=== PATIENT | female | born 1990 | race Caucasian/White ===

== ENCOUNTER 2021-02-03 16:57 | Outpatient (RCR) | payer OTHER, SELFPAY ==
[2021-02-03 17:40] VITALS: BP 116/65; PULSE 85
--- NOTE | 2021-03-24 10:56 | WPDANESEPPF ---
Anes - Initial Pre Proc Eval Procedure: Operation Date: 03/24/21 12:00 Proposed Procedures p Repeat Section - Sourav Balbuena DO Date/Time: 03/24/21 10:56 Surgeon: Sourav Balbuena DO Pre Op Diagnosis: previous c section Patient Data Age: 30 Gender: F Height: Weight: Last Vital Signs Pulse 85 02/03/21 17:40 BP 116/65 02/03/21 17:40 Allergies Allergy/AdvReac Type Severity Reaction Status Date / Time No Known Allergies Allergy Verified 03/03/21 14:30 Home Medications Medication Instructions Recorded Confirmed Type prenat.vits,viola,uwf-jovo-ccrbq 1 tablet PO HS 03/03/21 03/03/21 History [ #2] Patient hx anesthesia problems: none Family hx anesthesia problems: none PMFSH Surgical History Surgical History (Updated 03/20/21 @ 14:23 by Sourav Balbuena DO) History of delivery Family History Family History Sibling Throat cancer Grandparent Heart disease Mother Hypertension Social History Social History Smoking status: Current some day smoker Substance use: never Spiritual care concerns: No Anes - Eval Final PreProcedure Day of Procedure 03/24/21 10:56 Patient weight: obese Heart: regular rate and rhythm Lungs: clear to auscultation and normal air movement Airway: Mallampati scale class II Neurological: alert and oriented Last oral intake: >/= 8 hours ASA classification: II Emergent: no Anesthetic plan: proceed Anesthesia type and monitoring: regional spinal and standard monitoring Informed Consent: The patient's anesthetic plan and its attendant risks and benefits were discussed with the patient/family/POA. Questions were solicited and answers provided to the satisfaction of the patient/family/POA.
== END 2021-04-01 09:57 | disposition home or self-care (01) ==
LOC: ANHOBOP 16:57
PROVIDERS: Visit Provider Obstetrics & Gynecology
DX: O36.8330 Maternal care for abnormalities of the fetal heart rate or rhythm, third trimester, not applicable or unspecified (principal); Z3A.32 32 weeks gestation of pregnancy
CPT/HCPCS: 59025

== ENCOUNTER 2021-03-03 16:24 | Outpatient (CLI) | payer OTHER, SELFPAY ==
--- NOTE | ~2021-03-03 | US_ITS ---
EXAMINATION: US venous doppler LE RT DATE: 03/03/2021 17:01 INDICATION: Right lower limb edema. TECHNIQUE: Grayscale ultrasound images without and with compression and Doppler ultrasound images of the right lower extremity veins were obtained. COMPARISON: None. FINDINGS: The visualized portions of right common femoral vein, profunda (deep) femoral vein, femoral vein, pop liteal vein, peroneal veins, posterior tibial veins, and greater saphenous vein outflow are patent. IMPRESSION: 1. No deep venous thrombosis. Reviewed, dictated and finalized at location A.
== END 2021-03-03 16:25 | disposition home or self-care (01) ==
LOC: ANHIMG 16:32
PROVIDERS: PCP Internal Medicine; Visit Provider Obstetrics & Gynecology
DX: R60.0 Localized edema (principal)
CPT/HCPCS: 93971

== ENCOUNTER 2021-03-22 13:45 | Outpatient (CLI) | payer OTHER, SELFPAY ==
[2021-03-22 14:07] LABS: Hematocrit 39.9 % (37.0-47.0); Hemoglobin 13.7 g/dL (12.0-15.0); Mean Corpuscular HGB Conc 34.3 g/dl (32-36); Mean Corpuscular Hemoglobin 31.1 pg (26-34); Mean Corpuscular Volume 90.7 fl (80-100); Mean Platelet Volume 10.4 fl (7.4-10.4); Platelet Count Result 166 k/mm3 (150-375); Red Cell Distribution Width 13.6 % (11.5-14.5); White Blood Count 11.4 K/mm3 (4.5-10.0)
[2021-03-24 07:57] LABS: Rapid Plasma Reagin Non-Reactive (NonReactive)
== END 2021-03-22 13:46 | disposition home or self-care (01) ==
LOC: ANHLAB 13:48
PROVIDERS: PCP Internal Medicine; Visit Provider Obstetrics & Gynecology
DX: Z01.818 Encounter for other preprocedural examination (principal)
CPT/HCPCS: 36415; 85027; 86592; 86850; 86900; 86901

== ENCOUNTER 2021-03-24 10:02 | Inpatient (IN) | payer OTHER, SELFPAY ==
--- NOTE | 2021-03-03 14:45 | PC.NURSE ---
Addendum entered by Joseph Mares RN 03/03/21 14:47: VERIFIED WITH OR SCHEDULE AND PATIENT -C/S ON 03/24/21 AT 1200 PATIENT GIVEN REQUISITION FOR LAB DRAW ON 03/22/21 Original Note: VERIFIED WITH OR SCHEDULE AND PATIENT--C/S
--- NOTE | 2021-03-20 14:18 | PM.IMHP ---
H&P: HPI History of Present Illness Date/Time: 03/20/21 14:18 30yo (JACI 03/30/21) scheduled for elective repeat section at 39w1d on 03/24/21. Uncomplicated course. FIrst devliery via was secondary to arrest of dilation. Chief Complaint: history of section Review of Systems Constitutional: Constitutional: Reports no additional constitutional complaints Cardiovascular: Cardiovascular: Reports no additional cardiovascular complaints Respiratory: Respiratory: Reports no additional respiratory complaints Gastrointestinal: Gastrointestinal: Reports no additional gastrointestinal complaints Genitourinary: Genitourinary: Reports no additional female genitourinary complaints Musculoskeletal: Musculoskeletal: Reports no additional musculoskeletal complaints Integumentary/Breasts: Skin/Breast: Reports system reviewed and no additional complaints, except as docu Neurologic: Reports system reviewed and no additional complaints, except as documented Psychiatric: Psychiatric: Reports no additional psychiatric complaints Endocrine: Endocrine: Reports no additional endocrine complaints Hematologic/Lymphatic: Hematologic/Lymphatic: Reports no additional hematologic/lymphatic complaints Allergic/Immunologic: Allergic/Immunologic: Reports no additional allergic/immunologic complaints [facility] Surgical History Surgical History (Updated 03/20/21 @ 14:23 by Sourav Balbuena DO) History of delivery Family History Family History Sibling Throat cancer Grandparent Heart disease Mother Hypertension Social History Social History Substance use: never Spiritual care concerns: No Meds Home Medications and Allergies Home Medications Medication Instructions Recorded Confirmed Type prenat.vits,viola,[id number] 1 tablet PO HS 03/03/21 03/03/21 History [ #2] Allergies Allergy/AdvReac Type Severity Reaction Status Date / Time No Known Allergies Allergy Verified 03/03/21 14:30 Exam Const: General: cooperative, healthy appearing, comfortable, no acute distress, well developed, alert, awake and Physically active HENMT: Head: normal to inspection, normocephalic and atraumatic Eyes: General: appearance normal, both eyes and all related structures Resp: Effort & Inspection: normal respiratory effort, able to speak in complete sentences, normal respiratory pattern, no audible wheezes and no cough Cardio: Rate: regular rate Rhythm: regular rhythm GI: Inspection: normal to inspection GI Palp: Yes Soft to palpation, No Tenderness to palpation present (GI) and No Guarding due to palpation present (GI) Skin: General skin exam: normal color and no rashes or lesions noted Neuro: General: oriented to person, oriented to place, oriented to time and patient oriented x3 Psych: Appearance: grossly normal Mental Status: mental status grossly normal Speech and movement: Normal speech and movement present Affect: normal affect Attitude: cooperative Thought process: Normal thought process present Thought content: Yes Normal thought content present Insight: Good insight present (Psych) Judgement: Good judgement present (Psych) Assessment and Plan Assessment and plan (1) History of delivery: Code(s): Z98.891 - History of uterine scar from previous surgery Status: Inactive Assessment and Plan: -Admit to L&D -Admission labs -Repeat section
[2021-03-24] VITALS (57 sets, daily range): BP systolic 110–132; BP diastolic 41–82; PULSE 53–98; RESP 14–18; TEMP 36.1–36.6; O2SAT 94–98; BMI 34.7
--- OUTSIDE RECORDS SUMMARY | 2021-03-24 10:07 | XMS_ITS ---
:1990 Author Care Team Providers Name Role Phone Hase Primary Care Provider Unavailable Allergies Code Code System Name Reaction Severity Status Onset NKDA ? Medications Name Status Start Date Stop Date ? ? Acne Medication 5 % topical gel Completed ? 05/02/2018 NIDA A SMALL AMOUNT TO FACE QAM amoxicillin 875 mg-potassium Completed ? clavulanate 125 mg tablet citalopram 10 mg tablet Completed ? 05/18/20 17 TK 1 T PO D clobetasol 0.05 % scalp solution Completed ? 06/05/2019 Drysol Dab-O-Matic 20 % topical Completed ? 05/18/2017 solution Elidel 1 % topical cream Completed ? 018 Fluarix Quad (PF) 60 mcg (15 mcg x 4)/0.5 mL IM syring e Active ? Not available ADM 0.5ML IM UTD Fluarix Quad (PF) 60 mcg (15 mcg x 4)/0.5 mL IM syring e Active ? Not available ADM 0.5ML IM UTD fluocinolone 0.01 % scalp oil and Completed ? 06/05/2019 shower cap fluocinolone 0.01 % topical body oil Unknown ? Not available fluticasone propionate 0.05 % topical Completed ? 05/02/2018 cream fluticasone propionate 50 mcg/actuation Completed ? 06/05/2019 nasal spray,suspension Pratima 0.35 mg tablet Completed ? 9 hydrocodone 5 mg-acetaminophen 325 mg Completed ? 11/08/2018 tablet ketoconazole 2 % shampoo Completed ? 019 methylprednisolone 4 mg tablets in a Unknown ? Not available dose pack
--- OUTSIDE RECORDS SUMMARY | 2021-03-24 10:07 | XMS_ITS | Encounter Summary ---
:1990 Author Reason for Visit return OB visit Assessment and Plan 1. Routine care Discussion Note: None recorded.Patient educational handouts: No information available. Plan of Care Reminders Provider Appointments None ? ? recorded. Lab None ? ? recorded. Referral None ? ? recorded. Procedures None ? ? recorded. Surgeries None ? ? recorded. Imaging None ? ? recorded. Medications Name Start Date ? ? Fluarix Quad (PF) 60 mcg (15 mcg x 4)/0.5 mL IM syringe ? ADM 0.5ML IM UTD Fluarix Quad (PF) 60 mcg (15 mcg x 4)/0.5 mL IM syringe ? ADM 0.5ML IM UTD Notes: PNV Medications Administered None recorded. Vitals Weight Blood Pressure 201.2 lbs 118/70 mm[Hg] Results Lab Results None recorded. Allergies Code Code System Name Reaction Severity Onset NKDA ? ? ? Problems Name Status Onset Date Source ? Active 09/10/2020 History Hyperhidrosis Active ? History Acne Active ? History Procedures Date Name Performed by ?
--- OUTSIDE RECORDS SUMMARY | 2021-03-24 10:07 | XMS_ITS | Encounter Summary ---
[...] Administered None recorded. Vitals Weight Blood Pressure 201 lbs 114/68 mm[Hg] Results Lab Results None recorded. Allergies Code Code System Name Reaction Severity Onset NKDA ? ? ? Problems Name Status Onset Date Source ? Active 09/10/2020 History Hyperhidrosis Active ? History Acne Active ? History Procedures Date Name Performed by ?
--- OUTSIDE RECORDS SUMMARY | 2021-03-24 10:08 | XMS_ITS | Encounter Summary ---
:1990 Author Reason for Visit return OB visit Assessment and Plan 1. Routine care ? glucose tolerance test, ge stational, 1-hour ? CBC ? HIV (1+2) Ab screen, serum Discussion Note: None recorded.Patient educational handouts: No information available. Plan of Care Reminders Provider Appointments None ? ? recorded. Lab Glucose [place] [facility] Tolerance Test, 12/25/2020 [facility] (Lab) Gestational, 1-Hour ? Cbc [place] [facility] 12/25/2020 [facility] (Lab) ? HIV (1+2) Ab [address] [facility] Screen, Serum 12/25/2020 [facility] (Lab) Referral None ? ? recorded. Procedures None ? ? recorded. Surgeries None ? ? recorded. Imaging None ? ? recorded. Medications Name Start Date ? ? Fluarix Quad 1796-0758 (PF) 60 mcg (15 mcg x 4)/0.5 mL IM syringe ? ADM 0.5ML IM UTD Fluarix Quad 8221-9301 (PF) 60 mcg (15 mcg x 4)/0.5 mL IM syringe ? ADM 0.5ML IM UTD Notes: PNV Medications Administered None recorded. Vitals Weight Blood Pressure 194 lbs 118/78 mm[Hg]
--- OUTSIDE RECORDS SUMMARY | 2021-03-24 10:08 | XMS_ITS | Encounter Summary ---
:1990 Author Reason for Visit return OB visit Assessment and Plan 1. Routine care 2. Mass of axilla ? US, axilla Discussion Note: None recorded.Patient educational handouts: No information available. Plan of Care Reminders Provider Appointments None ? ? recorded. Lab None ? ? recorded. Referral None ? ? recorded. Procedures None ? ? recorded. Surgeries None ? ? recorded. Imaging US, Axilla [facility]/22/[facility] (Imaging) Medications Name Start Date ? ? Fluarix Quad [id number] (PF) 60 mcg (15 mcg x 4)/0.5 mL IM syringe ? ADM 0.5ML IM UTD Fluarix Quad (PF) 60 mcg (15 mcg x 4)/0.5 mL IM syringe ? ADM 0.5ML IM UTD Notes: PNV Medications Administered None recorded. Vitals Weight Blood Pressure 196.8 lbs 110/70 mm[Hg] Results Lab Results None recorded. Allergies Code Code System Name Reaction Severity Onset NKDA ? ? ? Problems Name Status Onset Date Source ? Active 09/10/2020 History
--- OUTSIDE RECORDS SUMMARY | 2021-03-24 10:08 | XMS_ITS ---
:1990 Author Care Team Providers Name Role Phone YOUNG LEONARDO Primary Care Provider [phone] Allergies Code Code System Name Reaction Severity [...]
--- OUTSIDE RECORDS SUMMARY | 2021-03-24 10:08 | XMS_ITS | Encounter Summary ---
:1990 Author Reason for Visit return OB visit Assessment and Plan 1. Routine care 2. History of section ? section (SURG) Discussion Note: None recorded.Patient educational handouts: No information available. Plan of Care Reminders Provider Appointments None ? ? recorded. Lab None ? ? recorded. Referral None ? ? recorded. Procedures None ? ? recorded. Surgeries [facility] Section (SURG) 03/24/2021 (Admitting) Imaging None ? ? recorded. Medications Name Start Date ? ? Fluarix Quad 1150-1402 (PF) 60 mcg (15 mcg x 4)/0.5 mL IM syringe ? ADM 0.5ML IM UTD Fluarix Quad (PF) 60 mcg (15 mcg x 4)/0.5 mL IM syringe ? ADM 0.5ML IM UTD Notes: PNV Medications Administered None recorded. Vitals Height Weight Blood Pressure 5 ft 4 in 198 lbs 110/62 mm[Hg] Results Lab Results None recorded. Allergies Code Code System Name Reaction Severity Onset NKDA ? ? ? Problems Name Status Onset Date Source ? Active 09/10/
--- OUTSIDE RECORDS SUMMARY | 2021-03-24 10:08 | XMS_ITS | Encounter Summary ---
[...] Weight Blood Pressure 5 ft 4 in 199 lbs 112/64 mm[Hg] Results Lab Results None recorded. Allergies Code Code System Name Reaction Severity Onset NKDA ? ? ? Problems Name Status Onset Date Source ? Active 09/10/2020 History Hyperhidrosis Active ? History Acne Active ? History Procedures Date Name Performed by
--- OUTSIDE RECORDS SUMMARY | 2021-03-24 10:08 | XMS_ITS | Encounter Summary ---
:1990 Author Reason for Visit return OB visit Assessment and Plan 1. Routine care ? streptococcus group B, cul ture, unspecified specimen 2. Swelling of lower leg Discussion Note: None recorded.Patient educational handouts: No information available. Plan of Care Reminders Provider Appointments None recorded. ? ? Lab Streptococcus Gat [facility] Group B, Culture, 03/03/2021 Hospital (Lab) Unspecified Specimen Referral None recorded. ? ? Procedures None recorded. ? ? Surgeries None recorded. ? ? Imaging None recorded. ? ? Medications Name Start Date ? ? Fluarix Quad [id number] (PF) 60 mcg (15 mcg x 4)/0.5 mL IM syringe ? ADM 0.5ML IM UTD Fluarix Quad (PF) 60 mcg (15 mcg x 4)/0.5 mL IM syringe ? ADM 0.5ML IM UTD Notes: PNV Medications Administered None recorded. Vitals Weight Blood Pressure 202 lbs 119/62 mm[Hg] Results Lab Results None recorded. Allergies Code Code System Name Reaction Severity Onset NKDA ? ? ? Problems Name Status Onset Date Source ?
[2021-03-24] MEDS: LACTATED RINGERS 1,000 ML 125 ML IV CONT (11:19)
--- NOTE | 2021-03-24 11:29 | LDADM ---
This patient, Nereyda Benson, was admitted to Labor/Delivery/Recovery 119 on 03/24/21 at 10:02. Plans for scheduled section, pain management and were discussed with patient. Patient/family oriented to hospital policies and general routines including ID bracelet, bed and alarms, visiting hours, pain management, procedures, bathroom and other care routines, personal items, smoking policy, room service/diet and guest tray routines, infant security routines, and visiting hours. Patient/Family are encouraged to report perceived risks to care and to ask questions if they do not understand what they are told or what they should do. See OBIX for further documentation.
--- NOTE | 2021-03-24 11:42 | WPDHPUPDATE1 ---
History and Physical Update Update Date/Time: 03/24/21 11:42 History and Physical has been reviewed, including an updated exam of the patient. There are NO changes in the patient's condition. Risks, benefits, and alternatives have been discussed and questions answered. Patient agrees to proceed with procedure.
--- NOTE | 2021-03-24 13:04 | PM.OBPRVD ---
OB - Delivery Note Procedure Delivery date: 03/24/21 Procedure: Repeat Low Transverse Section Route of delivery: (elective repeat) Quantitative Blood Loss (ml): 275 Anesthesia type: Spinal Disposition: PACU Narrative: Patient was transferred to the OR table and once adequate anesthesia was established, she was placed in dorsal position with left tilt of the hips. Preoperative antibiotics were administered. A time out was performed to identify the correct patient and procedure. A pfannenstiel skin incision was made with the scalpel. Subsequent dissection of the subcutaneous layer was performed with the scalpel down to the level of the fascia. Bovie was used to obtain hemostasis from small bleeding vessels. The fascia was nicked at the midline. Fascial incision was extended laterally with Haley scissors. Monica clamps were used to tent the superior aspect of the fascia up and the rectus muscles were carefully dissected off the fascia. Attention was then turned to the inferior aspect of the fascia and this was tented up with the Monica clamps and rectus muscles dissected off the fascia. The rectus muscles were divided at the midline and the peritoneum was bluntly entered. Eduardo self-retaining retractor was inserted. A low transverse uterine incision was made. This was extended bluntly with cephalad and caudad force. Amniotic sac was entered and clear fluid was noted. The 's head was elevated to the level of the hysterotomy and delivered with gentle fundal pressure, followed by the rest of the body. Cord was clamped and cut and was handed off the nursing staff. Placenta was expressed and delivered with gentle cord traction. Hysterotomy was examined for any extensions and no extensions were noted. This was reapproximated with 0 Vicryl in continuous locking fashion. Good hemostasis noted. Bilateral ovaries and fallopian tubes appeared normal. Paracolic gutter were cleaned of any clots. The fascia was then reapproximated with 0 Vicryl in continuous non-locking fashion. Subcutaneous tissue was reapproximated with 0 plain. The skin was reapproximated with 4-0 Monocryl in subcuticular fashion. Sterile bandage was applied. All sponge and instrument counts were correct during and at the end of the procedure. Patient tolerated the procedure was well and was transferred to recovery unit in good condition. [place] Baby Date of : 03/24/21 Time of : 12:24 Weeks of gestation at delivery: 39 Infant gender: Male Weight (pounds): 9 Weight (ounces): 0 presentation: vertex Placenta delivery description: Expressed cord vessel description: 3 Vessels score one minute: 8 score five minutes: 9
--- NOTE | 2021-03-24 15:20 | PC.NURSE ---
Patient transferred to post room #284 via stretcher. Support person present. Oriented to unit, room, information board, rooming in, admission packet and security measures. Patient verbalizes understanding.
--- NOTE | 2021-03-24 16:29 | SUR.PHASEI ---
1432- called, informed pt had dressing replaced for drainage and the second dressing was now removed for drainage again. Described drainage noted from incision while OCCUP THER on the right side. Order received to place pressure dressing.
[2021-03-24] MEDS: KETOROLAC 30 MG/ML VIAL (*BKC) IV PUSH (22:44)
[2021-03-25 00:16] VITALS: BP 103/65; PULSE 67; RESP 16; TEMP 36.1; O2SAT 98
[2021-03-25 05:46] LABS: Basophils Percent Auto 0.2 % (0.2-1.2); Eosinophils Percent Auto 0.1 % (0-4.4); Hematocrit 33.8 % (37.0-47.0); Hemoglobin 11.4 g/dL (12.0-15.0); Immature Granulocyte Absolute 0.14 K/mm3 (0.00-0.031); Immature Granulocyte Percent A 0.8 % (0-0.5); Lymphocytes Absolute Auto 1.63 K/mm3 (0.9-3.2); Mean Corpuscular HGB Conc 33.7 g/dl (32-36); Mean Corpuscular Hemoglobin 31.1 pg (26-34); Mean Corpuscular Volume 92.3 fl (80-100); Mean Platelet Volume 10.9 fl (7.4-10.4); Monocytes Absolute Auto 1.7 K/mm3 (0.1-0.6); Monocytes Percent Auto 9.2 % (2.6-8.5); Neutrophils Absolute Auto 14.6 K/mm3 (1.3-6.7); Neutrophils Percent Auto 80.7 % (45.5-73.1); Platelet Count Result 162 k/mm3 (150-375); Red Blood Count 3.66 M/mm3 (4.2-5.4); Red Cell Distribution Width 13.6 % (11.5-14.5)
[2021-03-25 05:54] VITALS: BP 108/62; PULSE 65; RESP 16; TEMP 36.3; O2SAT 100
[2021-03-25 07:50] VITALS: BP 113/64; PULSE 72; RESP 18; TEMP 37.3; O2SAT 98
--- NOTE | 2021-03-25 07:56 | WPDANLDNPN2 ---
Anes-Prog Note L&D-Neuraxial Date/Time: 03/25/21 07:56 Neuraxial medications: intrathecal PF morphine Opiod-related complaints: none Patient feedback: Patient satisfied with post-operative pain management.
--- NOTE | 2021-03-25 07:56 | WPDANLDPN2 ---
Anes-Prog Note L&D Date/Time: 03/25/21 07:56 Comfortable throughout: section Neuraxial method: spinal Epidural/Spinal procedure site: clean & non-tender Neuro status: Neuro function grossly intact. Cardiovascular status: normal Respiratory status: normal Airway patency: baseline Mental status: baseline Post-Op hydration status: normal Vital Signs: Last Vital Signs Temp 36.3 C L 03/25/21 05:54 Pulse 65 03/25/21 05:54 Resp 16 03/25/21 05:54 BP 108/62 03/25/21 05:54 Pulse Ox 100 03/25/21 05:54 Pain score (VAS): 0 I/O: Intake & Output 03/24/21 03/24/21 03/25/21 15:59 23:59 07:59 Intake Total 1650 Output Total 100 Balance 1550 Post-procedural complaints: none Patient feedback: Patient satisfied with anesthetic care.
[2021-03-25] MEDS: MULTIVIT/MIN/PREN/FOL AC/IRON TABLET 1 TAB PO (08:27)
[2021-03-25] MEDS: IBUPROFEN 600 MG TABLET PO ×3 (08:27→23:00)
[2021-03-25] MEDS: DOCUSATE SODIUM 100 MG CAPSULE PO ×2 (08:27→16:23)
--- NOTE | 2021-03-25 10:00 | PC.NURSE ---
Mother called out for assist with feeding, reporting is sleepy at times and using a nipple shield. Mother reports using the shield with first child for 4 months then began pumping and bottle feeding. Mother has slight tenderness. She has been set up pumping and reports tenderness with pumping. Reviewed nipple shield precautions and possible complications. Instructions given on application and cleaning of shield. Patient able to return demonstration on proper application of shield. Discussed the need for regular pumping until milk is well established and is gaining weight, if continues to nurse with the shield. Patient verbalizes understanding. is able to freely thrust tongue past gum ridge, both lips flange easily. Skin is intact on both nipples, no redness and bruising noted. Reviewed feeding cues, frequencies, duration of feedings, feeding elimination flow sheet, and signs of adequate intake. Demonstrated stimulation techniques to wake infant for feeding. Assisted with infant to breast. Reviewed positioning/alignment in cross cradle, holding breast in ?U? hold and guided asymmetrical latch on. Infant attempted to breast without shield, he is unable to draw nipple in correctly. With shield in place, was able to latch correctly. nursed sleepily with bursts of steady draws and occasional swallowing followed with pausing. Suggested mother stimulate while feeding to increase stimulate, increase intake and to assist with maintaining deep latch. Reviewed signs of a correct latch, effective nursing and suck swallow ratio. Infant would slip to shallow latch, mother reports tenderness. Demonstrated how to adjust latch more deeply while feeding. Mother reports she can feel change in latch and has no tenderness. Nipple care reviewed of lanolin after feedings, warm compresses as needed. Instructed mother to call out for RN assistance if she is unable to latch for feeding or she has discomfort with nursing.
--- NOTE | 2021-03-25 10:40 | PC.NURSE ---
Reviewed breast pump care and usage, pumping schedule, nipple care, and collection and storage of breast milk. Encouraged [id number], breast massage and manual expression to stimulate supply. Assessed patient for correct flange size, placement and draw ( changed to 27mm). Patient verbalizes and demonstrates understanding of instructions.
[2021-03-25 12:15] VITALS: BP 118/76; PULSE 86; RESP 16; TEMP 37.4; O2SAT 98
[2021-03-25] MEDS: ACETAMINOPHEN 325 MG TABLET 650 MG PO ×2 (13:11→19:42)
[2021-03-25 19:04] VITALS: BP 114/64; PULSE 78; RESP 16; TEMP 36.5; O2SAT 100
[2021-03-26] MEDS: ACETAMINOPHEN 325 MG TABLET 650 MG PO ×2 (01:38→10:27)
[2021-03-26] MEDS: IBUPROFEN 600 MG TABLET PO ×2 (05:09→13:30)
[2021-03-26 08:00] VITALS: BP 130/74; PULSE 66; RESP 16; TEMP 37.1; O2SAT 100
--- NOTE | 2021-03-26 08:45 | PC.NURSE ---
Mother called out for assist with feeding due to nipple pain. Mother is using a nipple shield for all feedings reporting pain increased during the late evening. Mother has pumped and offered EBM as. Infant is able to freely thrust tongue past gum ridge. Skin is intact on both nipples, redness noted to right and bruising.scabbing to left by inverted crease noted. Reviewed nipple care of lanolin after each feeding, and warm compresses several times per day as needed. Reviewed infant feeding cues, frequencies, duration of feedings, feeding elimination flow sheet, and signs of adequate intake. Demonstrated stimulation techniques to wake infant for feeding. Assisted with to breast. Reviewed positioning/alignment in cross cradle, holding breast in ?U? hold and guided asymmetrical latch on. Infant able to latch correctly. Infant nursed eagerly, with steady draws and frequent swallowing noted. Suggested mother stimulate while feeding to increase stimulate, increase intake and to assist with maintaining deep latch Reviewed signs of a correct latch, effective nursing and suck swallow ratio. was able to maintain latch without discomfort to mother. would slip to shallow latch, mother reports tenderness. Demonstrated how to adjust latch more deeply while feeding. Mother reports she can feel change in latch and has no tenderness. Stressed to hold breast during entire feeding and to adjust as slips down or pulls back. Mother is feeding as required and waking infant to feed if needed. has had at least 8 effective feedings, some with supplementation by syringe, in the past 24 hours, and is currently meeting outcomes for weight, output, jaundice and feeding frequencies. Mother states she feels confident to continue effective at home. Reviewed transition to breast milk, signs of adequate intake, and engorgement/relief. Instructed to call ICP if intake/output less than required. Reviewed regular medications mother is taking. Information provided per Karen. Reviewed community resources on the [facility] website and in the Mom/Baby guide. Information on outpatient services provided. Mother has no further questions at this time.
[2021-03-26] MEDS: DOCUSATE SODIUM 100 MG CAPSULE PO (10:27)
[2021-03-26] MEDS: MULTIVIT/MIN/PREN/FOL AC/IRON TABLET 1 TAB PO (10:27)
--- NOTE | 2021-03-26 12:21 | PM.OBPNVD ---
OB - PN: Subj Subjective Date/time seen: 03/26/21 12:21 30yo s/p rLTCS on 03/24. Doing well today, would like to go home. No issues/complaints today. Tolerating diet. OB - PN: Obj Data Labs CBC & Chem 7: 03/25/21 05:17 OB - PN A/P Assessment and Plan (1) Status post repeat low transverse section: Code(s): Z98.891 - History of uterine scar from previous surgery Status: Acute Assessment and Plan: - Routine post care - Ambulate - Ok for DC home today Time Spent With Patient Time: Total time spent is greater than 50% in coordination of care (as documented) at patient's floor/unit and/or counseling patient: Exam Const: General: cooperative, healthy appearing, comfortable, no acute distress, well developed, alert, awake and Physically active Resp: Effort & Inspection: normal respiratory effort, able to speak in complete sentences, normal respiratory pattern, no audible wheezes and no cough Cardio: Rate: regular rate GI: Inspection: normal to inspection GI Palp: No abdominal tenderness, Yes Soft to palpation, No Tenderness to palpation present (GI), No Guarding due to palpation present (GI) and No Rigid due to palpation Other: Incision C/D/I, steristrip in place Psych: Appearance: grossly normal Mental Status: mental status grossly normal Speech and movement: Normal speech and movement present Affect: normal affect Attitude: cooperative Thought process: Normal thought process present Thought content: Yes Normal thought content present Insight: Good insight present (Psych) Judgement: Good judgement present (Psych)
--- NOTE | 2021-03-26 12:25 | P.DS_ITS ---
DS: Admitting Diagnosis Admitting Diagnosis Admitting Diagnosis: History of section DS: Discharge Diagnosis Discharge Diagnosis (1) Status post repeat low transverse section: Code(s): Z98.891 - History of uterine scar from previous surgery Status: Acute Assessment and Plan: - Routine post care - Ambulate - Ok for DC home today OB - DS: Summary OB Procedures : None OB Procedures Intrapartum: low cervical, transverse OB Procedures: : None Peripartum Data Procedures: Procedures Operation Date: 03/24/21 12:00 Actual Procedure Side Surgeon p Section Sourav Balbuena DO Time Spent with Patient Time attestation: Total time spent providing and/or coordinating discharge services: Exam Const: General: cooperative, healthy appearing, comfortable, no acute distress, well developed, alert, awake and Physically active Orientation/ consciousness: oriented to person, oriented to place, oriented to time and patient oriented x3 HENMT: Head: normal to inspection, normocephalic and atraumatic Eyes: General: appearance normal, both eyes and all related structures Resp: Effort & Inspection: normal respiratory effort, able to speak in complete sentences, normal respiratory pattern, no audible wheezes and no cough Cardio: Rate: regular rate Rhythm: regular rhythm GI: Inspection: normal to inspection Other: Incision C/D/I, steristrip in place Skin: General skin exam: normal color and no rashes or lesions noted Neuro: General: oriented to person, oriented to place, oriented to time and patient oriented x3 Psych: Appearance: grossly normal Mental Status: mental status grossly normal Speech and movement: Normal speech and movement present Affect: normal affect Attitude: cooperative Thought process: Normal thought process present Insight: Good insight present (Psych) Judgement: Good judgement present (Psych) Discharge Plan Discharge Attending physician on discharge: Sourav Balbuena Discharging Clinician: Sourav Balbuena Patient Disposition: Home, Self-Care Activity: may shower, no straining, may drive after 2 weeks and pelvic rest Diet: regular Patient Instructions: Antibiotic Form, How to Stop Smoking (DC) Stand Alone Forms: General Discharge Information Follow-up/Referrals: Sourav Balbuena DO [Physician] - Discharge Medications: No Action #2 Tablet 1 tablet PO HS RF: 0 Date of admission: 03/24/21 10:02 Primary Care Provider: Vidhi,Anton Carvajal Admitting Provider: Sourav Balbuena Attending physician on admission: Sourav Balbuena Condition: Stable
[2021-03-26] MEDS: MEASLES,MUMPS,RUBELLA VACCINE 0.5 ML VIAL (12:53)
[2021-03-28 11:18] VITALS: BP 131/71; PULSE 57; RESP 20; TEMP 37.2; O2SAT 100
== END 2021-03-26 14:30 | disposition home or self-care (01) | DRG 788 ==
LOC: ANHLDR 11:56 → ANHOB2 15:24
PROVIDERS: Admitting Provider Obstetrics & Gynecology; PCP Internal Medicine; Visit Provider Obstetrics & Gynecology
PROC: 10D00Z1 Extraction of Products of Conception, Low, Open Approach (ICD-10-PCS; CPT 59514; principal; 2021-03-24 12:00)
DX: O34.211 Maternal care for low transverse scar from previous cesarean delivery (principal); Z3A.39 39 weeks gestation of pregnancy; Z37.0 Single live birth
CPT/HCPCS: 36415; 85025; 85027; 86592; 86850; 86900; 86901; 90710; A9270; J1100; J1885; J2274; J2405; J7120

== ENCOUNTER 2021-11-13 15:33 | Emergency (ER) | payer OTHER, SELFPAY ==
--- NOTE | 2021-11-13 15:35 | ED.FEMALEGU ---
HPI - Female Genitourinary General Chief complaint: Urogenital-Female Stated complaint: Urinary Problem Time Seen by Provider: 11/13/21 15:35 Source: patient and RN notes reviewed History of Present Illness HPI Narrative: Patient is a 31-year-old female who presents the urgent care with complaints of urgency, frequency, dysuria. Patient states that her symptoms started 4 days ago. Patient states she has been taking [id number] Azo with mild symptom relief. Denies any fever, chills, nausea, vomit. Patient denies of any frequent history of UTIs. Denies of any abdominal pain. No other acute complaints. No acute distress noted. Patient aware of the plan of care. Some parts of this dictation were generated by voice recognition software and may contain typographical and/or grammatical inaccuracies. Related Data Home Medications Medication Instructions Recorded Confirmed No Home Medications 11/13/21 11/13/21 Allergies Allergy/AdvReac Type Severity Reaction Status Date / Time No Known Allergies Allergy Verified 11/13/21 15:48 Review of Systems Review of Systems: CONSTITUTIONAL: Denies fever, chills, or sweats. EYES: Denies visual changes, redness, or discharge. ENT: Denies rhinorrhea, congestion, sore throat, or otalgia. CARDIOVASCULAR: Denies chest pain, palpitations, or edema. RESPIRATORY: Denies cough or dyspnea. GASTROINTESTINAL: Denies abdominal pain, nausea, vomiting, or diarrhea. GENITOURINARY: Reports of frequency, urgency, dysuria SKIN: Denies rash or itching. MUSCULOSKELETAL: Denies back pain, joint pain, or myalgia. NEUROLOGIC: Denies headache, numbness, or weakness. All other systems reviewed are negative, except as documented in HPI. [facility] Surgical History Surgical History (Updated 03/26/21 @ 12:25 by Sourav Balbuena DO) History of delivery Family History Family History Sibling Throat cancer Grandparent Heart disease Mother Hypertension Social History Social History Smoking status: Current some day smoker Substance use: never Spiritual care concerns: No Comments At the time of my signature, I reviewed and agree with the nursing past medical, surgical, social, and family history. There is no relevant family history pertinent to the patient complaint. Exam Narrative: GENERAL: This is a well-nourished, well-developed patient, in no apparent distress. HEAD: normocephalic, atraumatic. EYES: PERRL. Sclera clear/white. Vision is grossly intact. EARS: External ears normal, auditory canals clear and without drainage, TMs normal without perforation. Hearing grossly intact. NOSE: External nose normal with no obvious nasal discharge, nares without redness, no rhinorrhea. THROAT: Mucous membranes moist NECK: Neck supple CARDIOVASCULAR: Regular rate and rhythm without murmurs, gallops, or rubs. RESPIRATORY: Clear to auscultation. Breath sounds equal bilaterally. No wheezes, rales, or rhonchi. GASTROINTESTINAL: Abdomen soft, mild suprapubic tenderness, nondistended. SKIN: warm, intact with no suspicious lesions or rash, good texture and turgor. NEURO: awake, alert, and oriented to person, place and time. There were no obvious focal neurologic abnormalities. EXTREMITIES: No clubbing, cyanosis, or edema. BACK: Negative bilateral CVA tenderness Course Course Level of Care: Express Care Visit Vital Signs Vital signs: Vital Signs Temperature 98.1 F 11/13/21 15:45 Pulse Rate 68 11/13/21 15:45 Respiratory Rate 18 11/13/21 15:45 Blood Pressure 114/72 11/13/21 15:45 Pulse Oximetry 99 11/13/21 15:45 Temperature 98.1 F 11/13/21 15:45 Pulse Rate 68 11/13/21 15:45 Respiratory Rate 18 11/13/21 15:45 Blood Pressure 114/72 11/13/21 15:45 Pulse Oximetry 99 11/13/21 15:45 Reviewed MDM - Female Genitourinary MDM Narrative Medical decision making narr
[2021-11-13 15:45] VITALS: BP 114/72; PULSE 68; RESP 18; TEMP 36.7; O2SAT 99
== END 2021-11-13 16:05 | disposition home or self-care (01) ==
PROVIDERS: Emergency Provider Nurse Practitioner Family; PCP Internal Medicine
DX: N39.0 Urinary tract infection, site not specified (principal); F17.200 Nicotine dependence, unspecified, uncomplicated; Z86.16 Personal history of COVID-19; Z86.14 Personal history of Methicillin resistant Staphylococcus aureus infection
CPT/HCPCS: 81003; 87077; 87086; 87186; 99213; G0463

== ENCOUNTER 2021-11-25 16:05 | Emergency (ER) | payer OTHER, SELFPAY ==
--- NOTE | 2021-11-25 16:10 | ED.SKABFB ---
HPI - Skin/Abscess/Foreign Bdy General Chief complaint: Skin/Abscess/Foreign Body Stated complaint: body rash, hands are swollen and tender Time Seen by Provider: 11/25/21 16:10 Source: patient and RN notes reviewed History of Present Illness HPI narrative: Patient is a 31-year-old female who presents the urgent care with complaints of a rash to the chest, abdomen, neck, bilateral forearms. Patient states it started on her abdomen last night and the spread throughout the day. Patient states that her hands are now swollen and tender as well. Patient has been taking Benadryl without much improvement. No other acute complaints. Denies of any ill contacts. No acute distress noted. Patient aware of the plan of care. Some parts of this dictation were generated by voice recognition software and may contain typographical and/or grammatical inaccuracies. Related Data Home Medications Medication Instructions Recorded Confirmed escitalopram oxalate 10 mg PO DAILY 11/25/21 11/25/21 Allergies Allergy/AdvReac Type Severity Reaction Status Date / Time No Known Allergies Allergy Verified 11/25/21 16:21 Review of Systems Review of Systems: CONSTITUTIONAL: Denies fever, chills, or sweats. EYES: Denies visual changes, redness, or discharge. ENT: Denies rhinorrhea, congestion, sore throat, or otalgia. CARDIOVASCULAR: Denies chest pain, palpitations, or edema. RESPIRATORY: Denies cough or dyspnea. GASTROINTESTINAL: Denies abdominal pain, nausea, vomiting, or diarrhea. GENITOURINARY: Denies dysuria or hematuria. SKIN: Reports of scattered itchy rash to the neck, chest, abdomen, bilateral arms MUSCULOSKELETAL: Denies back pain, joint pain, or myalgia. NEUROLOGIC: Denies headache, numbness, or weakness. All other systems reviewed are negative, except as documented in HPI. [facility] Surgical History Surgical History (Updated 03/26/21 @ 12:25 by Sourav Balbuena DO) History of delivery Family History Family History Sibling Throat cancer Grandparent Heart disease Mother Hypertension Social History Social History Smoking status: Current some day smoker Substance use: never Spiritual care concerns: No Comments At the time of my signature, I reviewed and agree with the nursing past medical, surgical, social, and family history. There is no relevant family history pertinent to the patient complaint. Exam Narrative: GENERAL: This is a well-nourished, well-developed patient, in no apparent distress. HEAD: normocephalic, atraumatic. EYES: PERRL. Sclera clear/white. Vision is grossly intact. EARS: External ears normal NOSE: External nose normal with no obvious nasal discharge, nares without redness, no rhinorrhea. THROAT: Mucous membranes moist NECK: Neck supple CARDIOVASCULAR: Regular rate and rhythm without murmurs, gallops, or rubs. RESPIRATORY: Clear to auscultation. Breath sounds equal bilaterally. No wheezes, rales, or rhonchi. SKIN: Raised erythemic rough papular rash to the neck, scattered to the chest, and scattered to the abdomen. Raised erythemic scattered urticaria to bilateral forearms and behind bilateral ears NEURO: awake, alert, and oriented to person, place and time. There were no obvious focal neurologic abnormalities. EXTREMITIES: No clubbing, cyanosis, or edema. Course Course Level of Care: Express Care Visit Vital Signs Vital signs: Vital Signs Temperature 98.1 F 11/25/21 16:15 Pulse Rate 81 11/25/21 16:15 Respiratory Rate 20 11/25/21 16:15 Blood Pressure 140/83 11/25/21 16:15 Pulse Oximetry 99 11/25/21 16:15 Temperature 98.1 F 11/25/21 16:15 Pulse Rate 81 11/25/21 16:15 Respiratory Rate 20 11/25/21 16:15 Blood Pressure 140/83 11/25/21 16:15 Pulse Oximetry 99 11/25/21 16:15 Reviewed MDM - Skin/Abscess/Foreign Bdy MDM Narrative Medical decision aleida
[2021-11-25 16:15] VITALS: BP 140/83; PULSE 81; RESP 20; TEMP 36.7; O2SAT 99
== END 2021-11-25 16:58 | disposition home or self-care (01) ==
PROVIDERS: Emergency Provider Nurse Practitioner Family; PCP Internal Medicine
DX: L50.9 Urticaria, unspecified (principal); F17.200 Nicotine dependence, unspecified, uncomplicated
CPT/HCPCS: 87081; 87880; 99213; G0463

== ENCOUNTER 2021-11-27 01:35 | Emergency (ER) | payer OTHER, SELFPAY ==
[2021-11-27 01:38] VITALS: BP 149/62; PULSE 131; RESP 20; TEMP 36.9; O2SAT 98
[2021-11-27] MEDS: diphenhydrAMINE HCl INJ 50 MG/ML VIAL 25 MG IV PUSH (02:36)
[2021-11-27] MEDS: FAMOTIDINE 20 MG/2 ML VIAL IV PUSH (02:36)
[2021-11-27] MEDS: methylPREDNISolone SOD SUCC 125 MG VIAL IV PUSH (02:36)
[2021-11-27] MEDS: SODIUM CHLORIDE 0.9% IV 1,000 ML 999 ML IV CONT (02:37)
--- NOTE | 2021-11-27 03:10 | ED.SKABFB ---
HPI - Skin/Abscess/Foreign Bdy General Chief complaint: Allergic Reaction Stated complaint: allergic reaction Time Seen by Provider: 11/27/21 02:07 Source: patient Mode of arrival: ambulatory Limitations: no limitations History of Present Illness HPI narrative: 31-year-old female presents today with complaints of hives and itching that she noted yesterday. Hives have increased and patient states chest feels tight today. Patient was seen at urgent care on Wednesday. Patient was sent home with oral steroids which she took Wednesday night and this morning. Patient noted no change in symptoms but worsening of symptoms. Patient denies any new soaps, lotions, detergents, foods, etc. Patient denies any shortness of breath but does state that her chest feels tight at this time. Related Data Home Medications Medication Instructions Recorded Confirmed escitalopram oxalate 10 mg PO DAILY 11/25/21 11/25/21 Allergies Allergy/AdvReac Type Severity Reaction Status Date / Time No Known Allergies Allergy Verified 11/27/21 01:42 Review of Systems Review of Systems: CONSTITUTIONAL: Denies fever, chills, or sweats. EYES: Denies visual changes, redness, or discharge. ENT: Denies rhinorrhea, congestion, sore throat, or otalgia. CARDIOVASCULAR: Denies chest pain, palpitations, or edema. RESPIRATORY: Chest tightness. Denies cough or dyspnea. GASTROINTESTINAL: Denies abdominal pain, nausea, vomiting, or diarrhea. GENITOURINARY: Denies dysuria or hematuria. SKIN: Rash/hives. MUSCULOSKELETAL: Denies back pain, joint pain, or myalgia. NEUROLOGIC: Denies headache, numbness, dizziness, or weakness. PSYCHIATRIC: Denies anxiety or depression. PMFSH Surgical History Surgical History History of delivery Family History Family History Sibling Throat cancer Grandparent Heart disease Mother Hypertension Social History Social History Smoking status: Current some day smoker Substance use: never Spiritual care concerns: No Exam Narrative: GENERAL: Well-appearing, well-nourished, and in no acute distress. HEAD: Normocephalic, atraumatic. EYES: PERRLA and EOMI. ENT: Nares clear, no rhinorrhea or epistaxis. Mucous membranes moist. Oropharynx without tonsillar hypertrophy exudate or other lesions. Bilateral TMs pearly morrison nonbulging NECK: Supple. No adenopathy or masses. No carotid bruits or JVD CHEST: Clear to auscultation. No respiratory distress. No wheezes rales or rhonchi HEART: Regular rate and rhythm. No murmur heard. Normal peripheral pulses. ABDOMEN: Soft, nontender, nondistended, normal active bowel sounds. EXTREMITIES: Normal range of motion. No edema. SKIN: Urticaria noted to bilateral arms, abdomen, back, groin, and bilateral legs. Warm, dry. NEURO: No focal deficits. Alert and oriented x3. PSYCH: Normal mood and affect. Course Course Emergency Course: 31-year-old female presents today with complaints of rash/urticaria. Patient medicated with Pepcid, Solu-Medrol, Benadryl, and IV fluids. Improvement noted. Patient to be discharged home with steroids, Zyrtec, and Pepcid. Patient instructed to return with any new or worsening concerns and needs to follow-up with her primary in 3 days. Reevaluation(s) Reevaluation #1: Patient starting to feel some improvement after medication. Chest is no longer tight. Patient states the skin still feels like it is burning. Redness has decreased. Date: 11/27/21 Time: 03:13 Vital Signs Vital signs: Vital Signs Temperature 36.9 C 11/27/21 01:38 Pulse Rate 131 H 11/27/21 01:38 Respiratory Rate 20 11/27/21 01:38 Blood Pressure 149/62 H 11/27/21 01:38 Pulse Oximetry 98 11/27/21 01:38 Temperature 36.9 C 11/27/21 01:38 Pulse Rate 68 11/27/21 03:24 Respiratory Rate 16 11/27/21 03:24 Bloo
[2021-11-27 03:24] VITALS: BP 113/57; PULSE 68; RESP 16; O2SAT 99
[2021-11-27 04:35] VITALS: BP 110/58; PULSE 86; RESP 14; O2SAT 98
== END 2021-11-27 04:36 | disposition home or self-care (01) ==
PROVIDERS: Emergency Provider Nurse Practitioner Family; PCP Internal Medicine
DX: L50.9 Urticaria, unspecified (principal); F17.200 Nicotine dependence, unspecified, uncomplicated
CPT/HCPCS: 96361; 96374; 96375; 99284; J1200; J2930; J7030

== ENCOUNTER 2023-11-02 07:24 | Outpatient (CLI) | payer OTHER, SELFPAY ==
[2023-11-02 18:46] LABS: Hematocrit 43.7 % (37.0-47.0); Hemoglobin 13.5 g/dL (12.0-15.0); Mean Corpuscular HGB Conc 30.9 g/dl (32-36); Mean Corpuscular Hemoglobin 29.8 pg (26-34); Mean Corpuscular Volume 96.5 fl (80-100); Mean Platelet Volume 10.3 fl (7.4-10.4); Platelet Count Result 283 k/mm3 (150-375); Red Blood Count 4.53 M/mm3 (4.2-5.4); Red Cell Distribution Width 12.1 % (11.5-14.5); White Blood Count 6.1 K/mm3 (4.5-10.0)
[2023-11-02 19:12] LABS: Alanine Aminotransferase 17 U/L (6-35); Albumin Level 4.1 g/dL (3.5-5.1); Alkaline Phosphatase 57 U/L (38-126); Anion Gap 4 mmol/L (8-16); Aspartate Amino Transferase 61 U/L (14-36); Bilirubin,Total 0.4 mg/dL (0.2-1.3); Blood Urea Nitrogen 12 mg/dL (7-17); Calcium 9.1 mg/dL (8.4-10.2); Carbon Dioxide 28 mmol/L (22-30); Chloride 106 mmol/L (98-107); Cholesterol 166 mg/dL (0-200); Estimated Glomerular Filt Rate > 60; Glucose 80 mg/dL (65-110); HDL Direct 39 mg/dL; Potassium 4.2 mmol/L (3.4-5.0); Sodium 138 mmol/L (137-145); Triglycerides 83 mg/dL (<150)
[2023-11-02 19:23] LABS: LDL Cholesterol Direct 105 mg/dL
== END 2023-11-02 07:25 | disposition home or self-care (01) ==
LOC: ANHBWCLAB 07:25
PROVIDERS: PCP Nurse Practitioner Adult Health; Visit Provider Nurse Practitioner Adult Health
DX: Z13.9 Encounter for screening, unspecified (principal)
CPT/HCPCS: 36415; 80053; 80061; 84443; 85027

== ENCOUNTER 2023-12-14 16:23 | Outpatient (CLI) | payer OTHER, SELFPAY ==
[2023-12-14 19:23] LABS: Vitamin D 25 Hydroxy 47.6 ng/mL
[2023-12-14 19:58] LABS: Folic Acid 9.7 ng/mL (2.76->20)
[2023-12-16 11:49] LABS: FSH 3.6 mIU/mL (***); LH 4.5 mIU/mL (***); Progesterone 4.5 ng/mL (***)
[2023-12-21 12:31] LABS: Estrogen 178 pg/mL
== END 2023-12-14 16:24 | disposition home or self-care (01) ==
PROVIDERS: PCP Nurse Practitioner Adult Health; Visit Provider Nurse Practitioner Adult Health
DX: R53.83 Other fatigue (principal); Z79.899 Other long term (current) drug therapy
CPT/HCPCS: 36415; 82306; 82607; 82672; 82746; 83001; 83002; 84144

== ENCOUNTER 2024-01-08 13:56 | Emergency (ER) | payer OTHER, SELFPAY ==
[2024-01-08 14:09] VITALS: BP 124/73; PULSE 91; RESP 16; TEMP 37.2; O2SAT 99
--- NOTE | 2024-01-08 14:33 | ED.SKABFB ---
HPI - Skin/Abscess/Foreign Bdy General Chief complaint: Skin/Abscess/Foreign Body Stated complaint: painful rash Source: patient, RN notes reviewed and old records reviewed Mode of arrival: ambulatory Limitations: no limitations History of Present Illness HPI narrative: 33-year-old female presents to [facility] with complaints rash to lower right back left hand and right arm that started 2 days ago. Patient states takes Zyrtec daily. Patient has not tried any other at home medications. Patient states rash is painful. Patient denies any product changes, new medications or new foods Related Data Allergies Allergy/AdvReac Type Severity Reaction Status Date / Time No Known Allergies Allergy Verified 12/14/23 16:02 Review of Systems Constitutional: Constitutional: Reports no additional constitutional complaints, Denies body ache(s), Denies chills, Denies fatigue, Denies fever(s) and Denies headache(s) Eyes: Eyes: Reports no additional eye complaints and Denies blurry vision ENT: Reports system reviewed and no additional complaints, except as documented, Denies vertigo, Denies dizziness, Denies ear discharge, Denies otalgia, Denies facial pain, Denies headache(s), Denies nasal congestion, Denies nasal discharge, Denies sinus pain, Denies sinus pressure and Denies sore throat Cardiovascular: Cardiovascular: Reports no additional cardiovascular complaints, Denies chest pain, Denies chest pain at rest, Denies rapid heart rate and Denies dyspnea Respiratory: Respiratory: Reports no additional respiratory complaints, Denies chest congestion, Denies cough, Denies pain on inspiration, Denies pain with cough and Denies dyspnea Gastrointestinal: Gastrointestinal: Denies abdominal pain, Denies diarrhea, Denies nausea and Denies vomiting Integumentary/Breasts: Skin/Breast: Reports rash Neurologic: Reports system reviewed and no additional complaints, except as documented, Denies vertigo, Denies dizziness and Denies headache(s) Endocrine: Endocrine: Denies fatigue PMFSH Past Medical History Medical History Allergy, unspecified, initial encounter Anxiety Surgical History Surgical History Delivery by section History of delivery Family History Family History Sibling Throat cancer Grandparent Heart disease Mother Hypertension Other Diabetes mellitus Social History Social History Smoking status: Former smoker Alcohol intake: current Drinks per week: 2 Alcohol use details: Beer / Wine Substance use: never Substance use type: does not use Do You Feel Safe in your Home?: Yes Lack of Transportation: No Lack of Food: Never True Current Housing: I Have Housing Concerned About Future Housing: No Difficulty Paying Gas/Electric Bills: No Difficulty Paying for Meds: No Currently Unemployed: No Education: Master's Degree or Higher Difficulty w/ Childcare or Family Care: No Living arrangements: with family Additional living arrangements comments: Occupation/Education: occupation Additional occupation/education comments: teacher Gender identity (if verbalized by the patient): Female Sexual Orientation (if Verbalized by the Patient): Straight or Heterosexual Spiritual care concerns: No Agree to blood products: Yes Comments At the time of my signature, I reviewed and agree with the nursing past medical, surgical, social, and family history. There is no relevant family history pertinent to the patient complaint. Exam Const: General: cooperative, healthy appearing, no acute distress and well nourished Nutritional Appearance: well nourished Orientation/consciousness: patient oriented x3 Limitations: no limitations HENMT: Head: normal
== END 2024-01-08 14:42 | disposition home or self-care (01) ==
PROVIDERS: Emergency Provider Registered Nurse; PCP Nurse Practitioner Adult Health
DX: L23.9 Allergic contact dermatitis, unspecified cause (principal); Z87.891 Personal history of nicotine dependence
CPT/HCPCS: 99213; G0463

== ENCOUNTER 2024-01-12 13:00 | Emergency (ER) | payer OTHER, SELFPAY ==
[2024-01-12 13:03] VITALS: BP 138/73; PULSE 86; RESP 16; TEMP 36.6; O2SAT 100
[2024-01-12] MEDS: diphenhydrAMINE HCl INJ 50 MG/ML VIAL 25 MG IV PUSH (13:42)
[2024-01-12] MEDS: methylPREDNISolone SOD SUCC 125 MG VIAL IV PUSH (13:42)
[2024-01-12 13:58] LABS: Basophils Percent Auto 0.1 % (0.2-1.2); Eosinophils Absolute Auto 0.1 K/mm3 (0-0.3); Eosinophils Percent Auto 0.8 % (0-4.4); Hematocrit 38.2 % (37.0-47.0); Hemoglobin 13.1 g/dL (12.0-15.0); Immature Granulocyte Absolute 0.06 K/mm3 (0.00-0.031); Immature Granulocyte Percent A 0.5 % (0-0.5); Mean Corpuscular HGB Conc 34.3 g/dl (32-36); Mean Corpuscular Hemoglobin 30.5 pg (26-34); Mean Corpuscular Volume 88.8 fl (80-100); Mean Platelet Volume 9.5 fl (7.4-10.4); Monocytes Absolute Auto 0.4 K/mm3 (0.1-0.6); Monocytes Percent Auto 3.5 % (2.6-8.5); Neutrophils Absolute Auto 9.1 K/mm3 (1.3-6.7); Neutrophils Percent Auto 80.1 % (45.5-73.1); Platelet Count Result 310 k/mm3 (150-375); Red Cell Distribution Width 12.1 % (11.5-14.5); White Blood Count 11.3 K/mm3 (4.5-10.0)
[2024-01-12 14:09] LABS: Alanine Aminotransferase 18 U/L (6-35); Albumin Level 3.9 g/dL (3.5-5.1); Alkaline Phosphatase 55 U/L (38-126); Anion Gap 8 mmol/L (4-12); Aspartate Amino Transferase 21 U/L (14-36); Bilirubin,Total 0.6 mg/dL (0.2-1.3); Blood Urea Nitrogen 17 mg/dL (7-17); Calcium 8.8 mg/dL (8.4-10.2); Carbon Dioxide 25 mmol/L (22-30); Chloride 104 mmol/L (98-107); Estimated CRCL calculation 114 ml/min; Estimated Glomerular Filt Rate > 60; Glucose 112 mg/dL (65-110); Potassium 3.5 mmol/L (3.4-5.0); Sodium 137 mmol/L (137-145)
--- NOTE | 2024-01-12 15:13 | ED.GENADULT ---
HPI - General Adult General Chief complaint: Skin/Abscess/Foreign Body Stated complaint: rash Time Seen by Provider: 01/12/24 13:28 Source: patient Mode of arrival: ambulatory Limitations: no limitations History of Present Illness HPI narrative: 33-year-old with a history of seasonal allergies presents to the ER with a complaint of having hives all over the body with started few days ago was seen at urgent care and was started on Medrol Dosepak however this morning she states that she had diffuse hives. She denies any shortness of breath. Patient states that she had these current symptoms few years ago and that time she has seen Allergy immunology. She presently denies he taking any new medication using a new detergent or chemicals. She denies using any red meat or tick bite Onset (ago): day(s) (5) Related Data Allergies Allergy/AdvReac Type Severity Reaction Status Date / Time No Known Allergies Allergy Verified 01/12/24 13:06 Review of Systems Review of Systems: All systems reviewed & are unremarkable except as noted in HPI and below Constitutional: Constitutional: Reports no additional constitutional complaints Eyes: Eyes: Reports no additional eye complaints ENT: Reports system reviewed and no additional complaints, except as documented Gastrointestinal: Gastrointestinal: Reports as per HPI Musculoskeletal: Musculoskeletal: Reports no additional musculoskeletal complaints Integumentary/Breasts: Skin/Breast: Reports system reviewed and no additional complaints, except as docu Psychiatric: Psychiatric: Reports no additional psychiatric complaints PMFSH Past Medical History Medical History Allergy, unspecified, initial encounter Anxiety Surgical History Surgical History Delivery by section History of delivery Family History Family History Sibling Throat cancer Grandparent Heart disease Mother Hypertension Other Diabetes mellitus Social History Social History Smoking status: Former smoker Alcohol intake: current Drinks per week: 2 Alcohol use details: Beer / Wine Substance use: never Substance use type: does not use Do You Feel Safe in your Home?: Yes Lack of Transportation: No Lack of Food: Never True Current Housing: I Have Housing Concerned About Future Housing: No Difficulty Paying Gas/Electric Bills: No Difficulty Paying for Meds: No Currently Unemployed: No Education: Master's Degree or Higher Difficulty w/ Childcare or Family Care: No Living arrangements: with family Additional living arrangements comments: Occupation/Education: occupation Additional occupation/education comments: teacher Gender identity (if verbalized by the patient): Female Sexual Orientation (if Verbalized by the Patient): Straight or Heterosexual Spiritual care concerns: No Agree to blood products: Yes Exam Narrative: GENERAL: Well-appearing, well-nourished, and in no acute distress. HEAD: Normocephalic, atraumatic. EYES: PERRLA and EOMI. ENT: Nares clear, no rhinorrhea or epistaxis. Mucous membranes moist. NECK: Supple. CHEST: Clear to auscultation. No respiratory distress. HEART: Regular rate and rhythm. No murmur heard. Normal peripheral pulses. ABDOMEN: Soft, nontender, nondistended, normal active bowel sounds. EXTREMITIES: Normal range of motion. No edema. SKIN: Warm, dry, has diffuse hives NEURO: No focal deficits. Alert and oriented x3. PSYCH: Normal mood and affect. Course Course Emergency Course: Patient is stable she states that the rash is not any better however to me that looks like will lighten up. Advised to take prednisone 40 mg daily. Consider following with allergy power plant manager. She requested for
== END 2024-01-12 15:28 | disposition home or self-care (01) ==
PROVIDERS: Emergency Provider Family Medicine; PCP Nurse Practitioner Adult Health
DX: L50.9 Urticaria, unspecified (principal); Z87.891 Personal history of nicotine dependence; F41.9 Anxiety disorder, unspecified
CPT/HCPCS: 36415; 80053; 85025; 96374; 96375; 99284; J1200; J2919

== ENCOUNTER 2024-01-13 15:46 | Outpatient (CLI) | payer OTHER, SELFPAY ==
[2024-01-13 19:26] LABS: CRP 7.1 mg/dL (<1.0)
[2024-01-13 20:47] LABS: Erythrocyte Sedimentation Rate 24 mm/hr (0-20)
[2024-01-17 12:59] LABS: ANA Cascade Screen NEGATIVE (NEGATIVE)
== END 2024-01-13 15:47 | disposition home or self-care (01) ==
LOC: ANHBWCLAB 15:47
PROVIDERS: PCP Nurse Practitioner Adult Health; Visit Provider Nurse Practitioner Adult Health
DX: L50.8 Other urticaria (principal); Z79.899 Other long term (current) drug therapy
CPT/HCPCS: 36415; 85652; 86038; 86140; 86225; 86235; 86364

== ENCOUNTER 2024-07-24 08:40 | Outpatient (CLI) | payer OTHER, SELFPAY ==
[2024-07-24 19:24] LABS: Hematocrit 43.2 % (37.0-47.0); Hemoglobin 14.1 g/dL (12.0-15.0); Mean Corpuscular HGB Conc 32.6 g/dl (32-36); Mean Corpuscular Hemoglobin 30.9 pg (26-34); Mean Corpuscular Volume 94.5 fl (80-100); Mean Platelet Volume 10.7 fl (7.4-10.4); Platelet Count Result 265 k/mm3 (150-375); Red Blood Count 4.57 M/mm3 (4.2-5.4); Red Cell Distribution Width 13.5 % (11.5-14.5); White Blood Count 7.8 K/mm3 (4.5-10.0)
[2024-07-24 19:38] LABS: Alanine Aminotransferase 16 U/L (6-35); Albumin Level 4.2 g/dL (3.5-5.1); Alkaline Phosphatase 61 U/L (38-126); Anion Gap 6 mmol/L (4-12); Aspartate Amino Transferase 82 U/L (14-36); Bilirubin,Total 1.1 mg/dL (0.2-1.3); Blood Urea Nitrogen 13 mg/dL (7-17); Calcium 9.1 mg/dL (8.4-10.2); Carbon Dioxide 27 mmol/L (22-30); Chloride 105 mmol/L (98-107); Cholesterol 179 mg/dL (0-200); Estimated Glomerular Filt Rate > 60; Glucose 78 mg/dL (65-110); HDL Direct 56 mg/dL; Potassium 4.4 mmol/L (3.4-5.0); Sodium 138 mmol/L (137-145); Triglycerides 88 mg/dL (<150)
[2024-07-24 19:41] LABS: LDL Cholesterol Direct 95 mg/dL
== END 2024-07-24 08:41 | disposition home or self-care (01) ==
PROVIDERS: PCP Nurse Practitioner Adult Health; Visit Provider Nurse Practitioner Adult Health
DX: R73.9 Hyperglycemia, unspecified (principal); Z13.9 Encounter for screening, unspecified
CPT/HCPCS: 36415; 80053; 80061; 83036; 84443; 85027

== ENCOUNTER 2024-12-24 11:09 | Emergency (ER) | payer OTHER, SELFPAY ==
--- OUTSIDE RECORDS SUMMARY | 2024-12-24 11:11 | XMS_ITS ---
Author Organization [facility] Address [address] [place] [address] Care Team Providers Care Dialysis Chief Equipment Technician Name Role Phone Ana Van Primary Care Provider Carmen gilbertoje LorenzoMika Unavailable [phone] Allergies No Known Allergies REASON FOR VISIT Onset hives in mid-November without clear cause. Treated with oral steroids, Zyrtec, and Pepcid with complete resolution since November 30 s/p ED visit. Also with one noted episode of lip swelling. Additional onset 2 years later in relation to presumed viral illness with bruising occurring after, ARC follow-up: Continues allergy avoidance, on meds; recently with runny nose when eating meals Medications Medication SIG (Take, Route, Fr equency, Duration) Notes Start Date End Date Status Ipratropium [place] 0.06 % 2 sprays in each nostril Nasally Four times a day for 30 days 08/07/2024 Active Vyvanse 30 MG TAKE [address] [facility] DAILY Oral for 30 Days Active Auvi-Q 0.3 MG/0.3ML as directed intramus cularly once for 30 day(s) Active NASAL WASHES N/A as directed intranas ally as needed for 30 Active Amoxicillin-Pot Clavulanate 250-125 MG 1 tablet Orally every 8 hrs Active Lexapro 10 MG 1 tab(s) orally once a day for 30 day(s) Active ZyrTEC Allergy 10 MG 1 tab(s) orally once a day Active Fluticasone Propionate 50 MCG/ACT 2 spray(s) in each nostril BID for 30 day(s) Active FLUTICASONE NASAL 50 mcg/inh 2 spray(s) in each nostril BID for 30 day(s) Active CETIRIZINE 10 mg 1 tab(s) orally once a day for 30 days Active Fluticasone Propionate 50 MCG/ACT 2 spray(s) in each nostril BID for 30 day(s) 03/29/2022 Active Cetirizine HCl 10 MG 1 tab(s) orally onc e a day for 30 days 03/29/2022 Active AUVI -Q 0.3 mg as directed intramus cularly once for 30 day(s) Active Social History Tobacco Use: Social History Observation Description Date Details (start date - stop date) Never Smoker NA - NA Smoking Smart Form: Question Answer Notes Are you a: never smoker Tobacco Control (Standard) Question Answer Notes Tobacco use: Nonsmoker Problems Problem Type SNOMED Code ICD Code Onset Dates Problem Status W/U Status Risk Notes Problem Chronic rhinitis (29648461) Chronic rhinitis (J31.0) Active confirmed Vital Signs Blood pressure systolic 122 mm Hg 08/07/20 24 Blood pressure diastolic 77 mm Hg 024 Height 65 in 08/07/2024 Weight 185.2 lbs 08/07/2024 BMI 30.82 kg/m2 08/07/2024 Oximetry 100 % 08/07/2024 Encounters Encounter Location Date Provider Diagnosis [facility] [address] [address] 08/07/2024 Mika Lorenzo Idiopathic urticaria L50.1 ; Localized swelling, mass and lump, head R22.0 ; Chronic rhinitis J31.0 ; Allergic rhinitis due to pollen J30.1 ; Other allergic rhinitis J30.89 ; Other chronic allergic conjunctivitis H10.45 and Elevated blood-pressure reading, without diagnosis of hypertension R03.0 Assessments Encounter Date Diagnosis (ICD Code) Assessment Notes Treatment Notes Treatment Clinical Notes Section Notes 08/07/2024 Idiopathic urticaria (ICD-10 - L50.1) History, presentation, pictures, and timeframe of symptoms < 6 weeks c/w acute idiopathic urticaria. This is the second time this has occurred with clear underlying illness preluding onset. She has had approx 10 days of hives at this point. Treatment with antihistamines and steroids resulted in resolution of hives and swelling approx 5 days after onset. That said, she now reports bruising occurring after hives resolution despite hives occurring for less than 24 hours. The presentation of bruising is concerning for underlying vasculitis given she also reports joint pains at the time of occurrence as well. No interval illness or hives. Mainstay of treatment is with daily high-dose antihistamines but given low frequency of episodes, she has elected to continue on only daily Zyrtec. If hives return, I advised starting BID Zyrtec and BID Pepcid. She currently has solutions executive security on board. I advised obtaining bx if hives return to rule out vasculitics. Keep yearly follow-up and return sooner if hives return 08/07/2024 Localized swelling, mass and lump, head (ICD-10 - R22.0) Localized lip swelling occuring during episode of hives. 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 Plan to trial nasal ipratropium 15 minutes prior to meals to assess benefit. No current concern for a food allergy 08/07/2024 Allergic rhinitis due to pollen (ICD-10 - J30.1) Maris clearly suffers from atopic disease based upon our skin testing and clinical history. Accordingly, we have introduced a new, aggressive medication regimen, discussed nasal washes and allergy-specific avoidance measures. She is still considering SCIT. Happy with current regimen. Otherwise continue regimen as above. 08/07/2024 Other allergic rhinitis (ICD-10 - J30.89) Follow allergen avoidance, meds and consider SCIT as an adjunctive treatment to current regimen 08/07/2024 Other chronic allergic conjunctivitis (ICD-10 - H10.45) Given ocular signs and symptoms I encouraged allergy avoidance measures and meds as above. If symptoms persist, consider adding additional medications including intraocular antihistamine/mast cell stabilizer, PRN and consider SCIT as an adjunctive measure 08/07/2024 Elevated blood-pressure reading, without diagnosis of hypertension (ICD-10 - R03.0) BP elevated today without symptoms of urgency or emergency. Continue serial checks and follow-up with PCP 08/07/2024 Other Plan Of Treatment Medication Medication Name Sig Start Date Stop Date Notes Ipratropium [place] 0.06 % 2 sprays in e ach nostril Nasally Four times a day for 30 days 08/07/2024 NASAL WASHES N/A as directed intranas ally as needed for 30 FLUTICASONE NASAL 50 mcg/inh 2 spray(s) in each nostril BID for 30 day(s) CETIRIZINE 10 mg 1 tab(s) orally once a day for 30 days AUVI -Q 0.3 mg as directed intramus cularly once for 30 day(s) Treatment Notes Assessment Notes Idiopathic urticaria History, presentati on, pictures, and timeframe of symptoms < 6 weeks c/w acute idiopathic urticaria. This is the second time this has occurred with clear underlying illness preluding onset. She has had approx 10 days of hives at this point. Treatment with antihistamines and steroids resulted in resolution of hives and swelling approx 5 days after onset. That said, she now reports bruising occurring after hives resolution despite hives occurring for less than 24 hours. The presentation of bruising is concerning for underlying vasculitis given she also reports joint pains at the time of occurrence as well. No interval illness or hives. Mainstay of treatment is with daily high-dose antihistamines but given low frequency of episodes, she has elected to continue on only daily Zyrtec. If hives return, I advised starting BID Zyrtec and BID Pepcid. She currently has solutions executive security on board. I advised obtaining bx if hives return to rule out vasculitics. Keep yearly follow-up and return sooner if hives return Localized swelling, mass and lump, head Localized lip swelling occuring during episode of hives. Keep on hand at all times Chronic rhinitis Recurrent runny nose when eating meals c/w gustatory rhinitis. Plan to trial nasal ipratropium 15 minutes prior to meals to assess benefit. No current concern for a food allergy Allergic rhinitis due to pollen Maris clearly suffers from atopic disease based upon our skin testing and clinical history. Accordingly, we have introduced a new, aggressive medication regimen, discussed nasal washes and allergy-specific avoidance measures. She is still considering SCIT. Happy with current regimen. Otherwise continue regimen as above. Other allergic rhinitis Follow allergen avoidance, meds and consider SCIT as an adjunctive treatment to current regimen Other chronic allergic conjunctivitis Gi trice ocular signs and symptoms I encouraged allergy avoidance measures and meds as above. If symptoms persist, consider adding additional medications including intraocular antihistamine/mast cell stabilizer, PRN and consider SCIT as an adjunctive measure Elevated blood-pressure read ing, without diagnosis of hypertension BP elevated today without symptoms of urgency or emergency. Continue serial checks and follow-up with PCP Next Appt Details Follow Up: 4 Weeks, Reason: Evaluation and Management Provider Name:Mika painter, 07/30/2025 04:15:00 PM, [address] [facility], [address], [place], [address], Progress Notes * Nereyda CRAWFORDDOB:1990 (34 yo F)Acc No.[id number]:08/07/2024 Progress Notes Patient: Nereyda TABARES Provider: Raymundo Lorenzo PA-C :1990 A ge:34 Y S ex:Female Date:08/07/2024 Address:[address] [place], [place] [id number] Pcp:Ana Gomez, ANP- Subjective: * Chief Complaints: * O nset hives in mid-November without clear cause. Treated with oral steroids, Zyrtec, and Pepcid with complete resolution since November 30 s/p ED visit. Also with one noted episode of lip swelling. Additional onset 2 years later in relation to presumed viral illness with bruising occurring afterARC follow-up: Continues allergy avoidance, on meds; recently with runny nose when eating meals * HPI: * Introduction: I had the pleasure of seeing Annabella Crawford, a 34 y/o female with history of ARC and hives returning in consultation with Dr. Mosher for interval evaluation and management. She is alone for today's visit. She was last seen 2 years ago. She started with itchy ears that lead to diffuse hives starting mid-November and was started on high-dose prednisone. Hives improved significantly over the following few days before an episode of increased hives, lip swelling and SOB on 11/30. She went to the ED where she was treated with IV Benadryl with complete resolution. She finished her 14-day taper of prednisone and treated with Zyrtec and Pepcid. Noted lip swelling occurred at this point too. She denies any regular use of NSAIDs. No association with alcohol. No association with hot showers or exercise. No new medications or foods. No facial swelling outside the setting of hives. She reports January 07 she awoke with a fever. She started to have hives to the wrist that spread across the torso leading to swelling of the hands, eyes, and lips. She was given a steroid dose pack with minimal difference. On day 4, she went to the ED, and was treated with IV steroids and Benadryl. She does report bruising occurred after the hives resolved. This all resolved after day 5. She recently obtained ASIA with PCP that was negative. No interval occurrence. She does have a solutions executive security on board. She denies interval illness or hives since last visit. A eroallergen skin testing was completed at first visit, and was positive to multiple seasonal and perennial allergens. She reports ongoing runny nose, sinus congestion, and sneezing jags. She has taken Zyrtec in the past with benefit. She has a 6 y/o dog at home without noted difference. No one in her family is noted to have seasonal allergies. Additionally reports recurrent runny nose when eating meals. No other history of food allergies. T joaquin, she reports no fevers, chills, night sweats or other constitutional symptoms. * ROS: A LLERGY: runny nose Y es. s cratchy throat N o. i tchy eyes Y es. e ar fullness Y es. s inus congestion Y es. P ositive p er the HPI and history, otherwise unremarkable. S PECIAL SENSES: Positve for n one. i tching eyes Y es. ? C ONSTITUTIONAL: fatigue Y es. P ositive for n one. E NT: Positive p er the HPI and history, otherwise unremarkable.? R ESPIRATORY: Positive p er the HPI and history, otherwise unremakable.? O PHTHALMOLOGY: blurring of vision Y es. P ositive for p er the HPI and history, otherwise unremarkable. i tching Y es. w atering Y es. ? E NDOCRINOLOGY: fatigue Y es. P ositive for n one. C ARDIOLOGY: Positive for n one. G ASTROENTEROLOGY: Positive for n one. U ROLOGY: Positive for n one. D ERMATOLOGY: mole Y es. l umps N o. d ry or sensitive skin?Yes. h joelle (urticaria) Y es. a cne Y es. P ositive for p er the HPI and history, otherwise unremakable. N EUROLOGY: headache Y es. t ingling numbness Y es. P ositive for n one. H EMATOLOGY/LYMPH: Positive for n one. M USCULOSKELETAL: Positive for n one. P SYCHOLOGY: anxiety Y es. P ositive for n one. F EMALE REPRODUCTIVE: sexually active Y es. f requent yeat infections Y es. A re you planning on a future pregancy? N o. A ll other review of systems per the HPI and history, otherwise unremarkable. * Medical History: * Surgical History: B roken Wrist 12/21/2007Csection 10/10/2018Csection 03/24/2021 * Hospitalization/Major Diagno stic Procedure: N o Hospitalization History. * Family History: F ather: No. M other: Yes. P aternal Grand Father: No. P aternal Grand Mother: No.?Maternal Grand Father: No. M aternal Grand Mother: No. S iblings: Yes. C hildren: Yes. * Social History: M arital Status What is your marital status? m arried A lcohol Screening Do you ever drink alcoholic beverages? Y es Number of drinks per occasion: 2 Frequency? W julissa S moking Smart Form Are you a: n ever smoker R ecreational drug use Have you ever used recreational drugs? N o D etails on consumption of certain products? Do you regularly consume products with aspartame; Equal or NutraSweet? N o Do you regularly consume products with artificial coloring??Yes Have you ever noticed worsening of your rash with these food items? N o E xercise What kind(s) of exercise do you perform regularly? w eight training,cardio How often do you perform this exercise? e very other day A re any of the following personal care products containing fragrance, dye or preservatives used regularly? Shampoo: Y es Conditioner: Y es Soap: Y es Laundry Detergent: Y es Fabric Softener: Y es Deodorant: Y es Perfume, cologne, after shave: N o Air freshners or other scented products: N o Hair coloring dyes or rinses: N o O ccupation Are you currenly employed? Y es Employment status? 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 number of years?9 Do you believe that your current or previous occupation has any bearing on your illness? N o How much work have you missed due to breathing difficulty within the past year? 1 or 2 days Please describe the effect of your illness on your job p oor concentration,decreased enjoyment,loss of work Do you have any pending or planned legal action against your current or former employer which pertains to your medical illness? N o Do you anticipate that your evaluation will be used in any legal action against your current employer or former employer? N o Have you had any job with high exposure to fumes, chemicals, dust or other noxious substances? N o Are you currently a student? N o E nvironmental History Living environment: p rivate home,with pets Where is the home located? r ural Age of home: 2 0 How long have you lived there? 0 -1 years How many people live in the home? 4 H ome description Basement: Y es Any water damage in basement? N o Smokers in the home? N o Smokers outside the home? N o Air Conditioning? Y es Central Air? Y es Forced air heating? Y es Gas or electric? g as Fireplace? Y es Used how often? w inter months only Wood burning stove? N o Do you vacuum the home? Y es Air purification systems? N o Pillow and mattress dust-proof encasings? Y es Do you use a humidifier? N o Do you own any pets? Y es What kind(s)? (click all that apply) d og Where do your pets sleep? b edroom Fabric softeners used? Y es Plants in the home? Y es How many? 4 Where are they kept? y our room,kitchen,other room in home Is there carpeting in your bedroom? Y es Age of carpet? 2 0 Do you have [id number]-eh-fgys carpeting? N o What is the age of your mattress (years)? 5 What material(s) are used to manufacture your bedding and pillow? n atural fiber (e.g. cotton) What is the age of your pillow (years)? 1 What material are your bedding items made of? n atural fiber (e.g. cotton) Do you sleep with quilts or blankets or a duvet? Y es What material? n atural fiber (e.g. cotton) How many dogs? 1 T obacco Control (Standard) Tobacco use: N onsmoker * Medications: T akingNASAL WASHES N/A 1 quart of sterilized tap water or distilled water, 1 tsp NaCl, 1 pinch of baking soda as directed intranasally as needed Amoxicillin-Pot Clavulanate 250-125 MG Tablet 1 tablet Orally every 8 hrs Auvi-Q 0.3 MG/0.3ML Solution Auto-injector as directed intramuscularly once Cetirizine HCl 10 MG Tablet 1 tab(s) orally once a day Fluticasone Propionate 50 MCG/ACT Suspension 2 spray(s) in each nostril BID Fluticasone Propionate 50 MCG/ACT Suspension 2 spray(s) in each nostril BID ZyrTEC Allergy 10 MG Tablet 1 tab(s) orally once a day Lexapro 10 MG Tablet 1 tab(s) orally once a day Vyvanse 30 MG Capsule TAKE 1 CAPSULE BY MOUTH DAILY Oral Taking NASAL WASHES N/A 1 quart of sterilized tap water or distilled water, 1 tsp NaCl, 1 pinch of baking soda as directed intranasally as needed Taking Amoxicillin-Pot Clavulanate 250-125 MG Tablet 1 tablet Orally every 8 hrs Taking Auvi-Q 0.3 MG/0.3ML Solution Auto-injector as directed intramuscularly once Taking Cetirizine HCl 10 MG Tablet 1 tab(s) orally once a day Taking Fluticasone Propionate 50 MCG/ACT Suspension 2 spray(s) in each nostril BID Taking Fluticasone Propionate 50 MCG/ACT Suspension 2 spray(s) in each nostril BID Taking ZyrTEC Allergy 10 MG Tablet 1 tab(s) orally once a day Taking Lexapro 10 MG Tablet 1 tab(s) orally once a day Taking Vyvanse 30 MG Capsule TAKE 1 CAPSULE BY MOUTH DAILY Oral Not- Taking/PRNAUVI -Q 0.3 mg kit as directed intramuscularly once CETIRIZINE 10 mg tablet 1 tab(s) orally once a day FLUTICASONE NASAL 50 mcg/inh spray 2 spray(s) in each nostril BID Medication List reviewed and reconciled with the patientNot-Taking/PRN AUVI -Q 0.3 mg kit as directed intramuscularly once Not-Taking/PRN CETIRIZINE 10 mg tablet 1 tab(s) orally once a day Not-Taking/PRN FLUTICASONE NASAL 50 mcg/inh spray 2 spray(s) in each nostril BID Medication List reviewed and reconciled with the patient * Allergies: N .K.D.A.no[Allergies Verified] Objective: * Vitals: B P:122/77mm Hg, HR:70/min, Pulse Oximetry:100%, Ht: 65 in, Wt: 185.2 lbs, BMI:30.82Index. * Examination: G eneral examination: General appearance: p leasant, well-developed, well-nourished , female, in no apparent distress. HEENT: p upils equal, round, and reactive to light and accommodation, conjunctiva are injected bilaterally, no tenderness to palpation of the sinuses, TM's without evidence of acute infection, turbinates 2+ swollen and pale inferiorly bilaterally, clear rhinorrhea is present, no polyps noted, no septal perforation, posterior oropharynx is erythematous and cobblestoning is present, erythema on pharyngeal wall, no exudates, no tongue swelling, and uvula is midline. Oral cavity: n ormal, no lesions. Neck, thyroid : s upple, non-tender, no anterior cervical lymphadenopathy. Breasts : n ot performed. Heart: R RR, S1-S2, no murmurs, no rubs, no gallops. Lungs: c lear to auscultation and percussion in all lung allen, no wheezes or crackles. Abdomen: s oft, NT/ND, normal active bowel sounds. Neurologic exam: u nremarkable. Skin: n ormal, no rash, dermatographism, urticaria, angioedema. Peripheral pulses: n ormal (2+) bilaterally. Back: n ormal. Extremities: n ormal ROM, no clubbing, no cyanosis, no edema. Genitalia: n ot performed. Assessment: * Assessment: 1. I diopathic urticaria - L50.1 (Primary) 2 . L ocalized swelling, mass and lump, head - R22.0 3 . C hronic rhinitis - J31.0 4 . A llergic rhinitis due to pollen - J30.1 5 . O ther allergic rhinitis - J30.89 & #160; 6 . O ther chronic allergic conjunctivitis - H10.45 7 . E levated blood-pressure reading, without diagnosis of hypertension - R03.0 Plan: * Treatment: 2. L ocalized swelling, mass and lump, head Continue AUVI -Q kit, 0.3 mg, as directed, intramuscularly, once, 30 day(s), 1, Refills 0. ? Notes: Localized lip swelling occuring during episode of hives. Keep on hand at all times ? 3. C hronic rhinitis Start Ipratropium [place] Solution, 0.06 %, 2 sprays in each nostril, Nasally, Four times a day, 30 days, 1, Refills 2. Notes: Recurrent runny nose when eating meals c/w gustatory rhinitis. Plan to trial nasal ipratropium 15 minutes prior to meals to assess benefit. No current concern for a food allergy 4. A llergic rhinitis due to pollen Continue CETIRIZINE tablet, 10 mg, 1 tab(s), orally, once a day, 30 days, 30, Refills 0; C ontinue FLUTICASONE NASAL spray, 50 mcg/inh, 2 spray(s), in each nostril, BID, 30 day(s), 1, Refills 0; Continue NASAL WASHES 1 quart of sterilized tap water or distilled water, 1 tsp NaCl, 1 pinch of baking soda, N/A, as directed, intranasally, as needed, 30, QS, Refills PRN. Notes: Maris clearly suffers from atopic disease based upon our skin testing and clinical history. Accordingly, we have introduced a new, aggressive medication regimen, discussed nasal washes and allergy-specific avoidance measures. She is still considering SCIT. Happy with current regimen. Otherwise continue regimen as above. 5. O ther allergic rhinitis Notes: Follow allergen avoidance, meds and consider SCIT as an adjunctive treatment to current regimen 6. O ther chronic allergic conjunctivitis Notes: Given ocular signs and symptoms I encouraged allergy avoidance measures and meds as above. If symptoms persist, consider adding additional medications including intraocular antihistamine/mast cell stabilizer, PRN and consider SCIT as an adjunctive measure 7. E levated blood-pressure reading, without diagnosis of hypertension Notes: BP elevated today without symptoms of urgency or emergency. Continue serial checks and follow-up with PCP * Procedure Codes: G 8427 DOC MEDS VERIFIED W/PT OR [id number] Cristhian Lorenzo - Incident-to * Preventive Medicine: Counseling: M edication instruction: W atch for side effects of prescribed medications, Nasal steroid/antihistamine instruction: avoid septum, Injectable epinephrine education and instruction w/ discussion of signs and symptoms of anaphylaxis and reasons to seek urgent or emergent care, Able to return demonstration of self-injectable epinephrine. E ducation: H JOELLE EDUCATION:, Avoid opioid-containing analgesics, Avoid excessive alcohol use, Avoid NSAIDs (non-steroidal anti-inflammatories) - list provided. P atient education material sent to portal? Y es C are goal follow up plan BMI management provided Y es Above Normal BMI Follow-up D ietary management education, guidance, and counseling B P Management: PRE-HYPERTENSIVE FOLLOW-UP PLAN: P atient follow-up planned and scheduled REFERRAL TO ALTERNATIVE / PRIMARY CARE PROVIDER: R parrishal to general practitioner * Follow Up: 4 Weeks (Reason: Evaluation and Management) * Billing Information: * Visit Code: 43993 Office Visit, Est Pt., Level 4. Modifiers: 25 * Procedure Codes: G8427 DOC MEDS VERIFIED W/[place]. [address] Cristhian Lorenzo - Incident-to. * ECTIONAL SERGEANT Sign off status: Completed true * Provider: Raymundo Lorenzo PA-C Date: 10/07/2023 Generated for Ace la/Fahuongg/eTransmitting on: 0 12/24/2024 11:11 AM CDT History and Physical Notes * HPI (History of Present Illness) Category Sub-Category Detail Notes Category Not es *Introduction I had the pleasure o f seeing Nereyda Crawford, a 34 y/o female with history of ARC and hives returning in consultation with Dr. Mosher for interval evaluation and management. She is alone for today's visit. She was last seen 2 years ago. She started with itchy ears that lead to diffuse hives starting mid-November and was started on high-dose prednisone. Hives improved significantly over the following few days before an episode of increased hives, lip swelling and SOB on 11/30. She went to the ED where she was treated with IV Benadryl with complete resolution. She finished her 14-day taper of prednisone and treated with Zyrtec and Pepcid. Noted lip swelling occurred at this point too. She denies any regular use of NSAIDs. No association with alcohol. No association with hot showers or exercise. No new medications or foods. No facial swelling outside the setting of hives. She reports January 07 she awoke with a fever. She started to have hives to the wrist that spread across the torso leading to swelling of the hands, eyes, and lips. She was given a steroid dose pack with minimal difference. On day 4, she went to the ED, and was treated with IV steroids and Benadryl. She does report bruising occurred after the hives resolved. This all resolved after day 5. She recently obtained ASIA with PCP that was negative. No interval occurrence. She does have a solutions executive security on board. She denies interval illness or hives since last visit. Aeroallergen skin testing was completed at first visit, and was positive to multiple seasonal and perennial allergens. She reports ongoing runny nose, sinus congestion, and sneezing jags. She has taken Zyrtec in the past with benefit. She has a 6 y/o dog at home without noted difference. No one in her family is noted to have seasonal allergies. Additionally reports recurrent runny nose when eating meals. No other history of food allergies. Today, she reports no fevers, chills, night sweats or other constitutional symptoms Examination Category Sub-Category Detail Notes Category Not es General examination HEENT: pupils equal , round, and reactive to light and accommodation, conjunctiva are injected bilaterally, no tenderness to palpation of the sinuses, TM's without evidence of acute infection, turbinates 2+ swollen and pale inferiorly bilaterally, clear rhinorrhea is present, no polyps noted, no septal perforation, posterior oropharynx is erythematous and cobblestoning is present, erythema on pharyngeal wall, no exudates, no tongue swelling, and uvula is midline Neck, thyroid : supple, non-tender, no anterior cervical lymphadenopathy Heart: RRR, S1-S2, no murmu rs, no rubs, no gallops Lungs: clear to auscultatio n and percussion in all lung allen, no wheezes or crackles Abdomen: soft, NT/ND, normal active bowel sounds Extremities: normal ROM, no clubb ing, no cyanosis, no edema General appearance: pleasant, well-devel oped, well-nourished , female, in no apparent distress Skin: normal, no rash, lorraine matographism, urticaria, angioedema Neurologic exam: unremarkable Oral cavity: normal, no lesions Breasts : not performed Peripheral pulses: normal (2+) bilatera lly Back: normal Genitalia: not performed
--- OUTSIDE RECORDS SUMMARY | 2024-12-24 11:11 | XMS_ITS | Patient Health Record ---
Author Organization [facility] Address [address] [place] [address] Care Team Providers Care Director Intelligence Analysis Programs Name Role Phone Ana Van Primary Care Provider Mika Walsh Unavailable [phone] [employer], Provider Unavailable Unavailab le Allergies No Known Allergies Reason For Referral No Information Medications Medication SIG (Take, Route, Fr equency, Duration) Notes Start Date End Date Status Ipratropium [place] 0.06 % 2 sprays in each nostril Nasally Four times a day for 30 days 08/07/2024 Active Lexapro 10 MG 1 tab(s) orally once a day for 30 day(s) Active ZyrTEC Allergy 10 MG 1 tab(s) orally once a day Active Fluticasone Propionate 50 MCG/ACT 2 spray(s) in each nostril BID for 30 day(s) Active Fluticasone Propionate 50 MCG/ACT 2 spray(s) in each nostril BID for 30 day(s) 03/29/2022 Active Cetirizine HCl 10 MG 1 tab(s) orally onc e a day for 30 days 03/29/2022 Active AUVI -Q 0.3 mg as directed intramus cularly once for 30 day(s) Active FLUTICASONE NASAL 50 mcg/inh 2 spray(s) in each nostril BID for 30 day(s) Active Vyvanse 30 MG TAKE 1 CAPSULE BY MO [facility] DAILY Oral for 30 Days Active CETIRIZINE 10 mg 1 tab(s) orally once a day for 30 days Active Auvi-Q 0.3 MG/0.3ML as directed intramus cularly once for 30 day(s) Active NASAL WASHES N/A as directed intranas ally as needed for 30 Active Amoxicillin-Pot Clavulanate 250-125 MG 1 tablet Orally every 8 hrs Active Immunizations Vaccine Route Administration Date Status Comme nts Fluzone, quadrivalent, preservative free Unknown 06/04/2020 Administered Influenza Unknown 06/28/2019 Administered [employer] Measles, Mumps, and Rubella Live Vaccine Unknown 03/26/2021 Administered NOC Tdap Unknown 08/19/2018 Administered [employer] Social History Tobacco Use: Social History Observation Description Date Details (start date - stop date) Never Smoker NA - NA Smoking Smart Form: Question Answer Notes Are you a: never smoker Tobacco Control (Standard) Question Answer Notes Tobacco use: Nonsmoker Problems Problem Type SNOMED Code ICD Code Onset Dates Problem Status W/U Status Risk Notes Problem Chronic allergic conjunctivitis (91606242) Other chronic allergic conjunctivitis (H10.45) Active confirmed Problem Allergic rhinitis caused by pollen (disorder) (65331085) Allergic rhinitis due to pollen (J30.1) Active confirmed Problem Allergic rhinitis (77162134) Other allergic rhinitis (J30.89) Active confirmed Problem Chronic rhinitis (44278262) Chronic rhinitis (J31.0) Active confirmed Problem Idiopathic urticaria (90281387) Idiopathic urticaria (L50.1) Active confirmed Problem Elevated blood pressure reading without diagnosis of hypertension (072984650) Elevated blood-pressure reading, without diagnosis of hypertension (R03.0) Active confirmed Problem Swelling of head (218020379) Localized swelling, mass and lump, head (R22.0) Active confirmed Vital Signs Oximetry 100 % 08/07/2024 Blood pressure diastolic 77 mm Hg 08/07/2024 Height 65 in 08/07/2024 Blood pressure systolic 122 mm Hg 08/07/2024 Weight 185.2 lbs 08/07/2024 BMI 30.82 kg/m2 08/07/2024 Encounters Encounter Location Date Provider Diagnosis [address] [address] 02/26/2024 Provider [employer] Allergic rhinitis due to pollen J30.1 and Localized swelling, mass and lump, head R22.0 [facility] [address] [address] 03/20/2024 Mika Lorenzo Idiopathic urticaria L50.1 ; Localized swelling, mass and lump, head R22.0 ; Allergic rhinitis due to pollen J30.1 ; Other allergic rhinitis J30.89 ; Other chronic allergic conjunctivitis H10.45 and Elevated blood-pressure reading, without diagnosis of hypertension R03.0 [facility] [address] [place] [id number] 08/07/2024 Mika Lorenzo Idiopathic urticaria L50.1 ; Localized swelling, mass and lump, head R22.0 ; Chronic rhinitis J31.0 ; Allergic rhinitis due to pollen J30.1 ; Other allergic rhinitis J30.89 ; Other chronic allergic conjunctivitis H10.45 and Elevated blood-pressure reading, without diagnosis of hypertension R03.0 [facility] [address] [place] [id number] 01/24/2024 Mika Lorenzo Assessments Encounter Date Diagnosis (ICD Code) Assessment Notes Treatment Notes Treatment Clinical Notes Section Notes 02/26/2024 Allergic rhinitis due to pollen (ICD-10 - J30.1) 03/20/2024 Idiopathic urticaria (ICD-10 - L50.1) History, presentation, [...] at the time of occurrence as well. It has been 2 months since last episodes. I discussed that mainstay of treatment is with daily high-dose antihistamines but given low frequency of episodes, she has elected to continue on only daily Zyrtec. If hives return, I advised starting BID Zyrtec and BID Pepcid. She currently has fork lift technician on board. I advised obtaining bx if hives return to rule out vasculitics. Return in 3 months for E&M 03/20/2024 Localized swelling, mass and lump, head (ICD-10 - R22.0) Localized lip swelling occuring during episode of hives. Keep on hand at all times 08/07/2024 Idiopathic urticaria (ICD-10 - L50.1) History, [...] Zyrtec and BID Pepcid. She currently has fork lift technician on board. I advised obtaining bx if [...] No current concern for a food allergy 03/20/2024 Allergic rhinitis due to pollen (ICD-10 - J30.1) Maris clearly suffers from atopic disease based upon our skin testing and clinical history. Accordingly, we have introduced a new, aggressive medication regimen, discussed nasal washes and allergy-specific avoidance measures. She is still considering SCIT. Happy with current regimen. Otherwise continue regimen as above. 03/20/2024 Other allergic rhinitis (ICD-10 - J30.89) Follow allergen avoidance, meds and consider SCIT as an adjunctive treatment to current regimen 08/07/2024 Allergic rhinitis due to pollen (ICD-10 [...] as an adjunctive treatment to current regimen 02/26/2024 Localized swelling, mass and lump, head (ICD-10 - R22.0) 03/20/2024 Other chronic allergic conjunctivitis (ICD-10 - H10.45) Given ocular signs and symptoms I encouraged allergy avoidance measures and meds as above. If symptoms persist, consider adding additional medications including intraocular antihistamine/mast cell stabilizer, PRN and consider SCIT as an adjunctive measure 08/07/2024 Other chronic allergic conjunctivitis (ICD-10 - H10.45) Given ocular signs and symptoms I encouraged allergy avoidance measures and meds as above. If symptoms persist, consider adding additional medications including intraocular antihistamine/mast cell stabilizer, PRN and consider SCIT as an adjunctive measure 03/20/2024 Elevated blood-pressure reading, without diagnosis of hypertension (ICD-10 - R03.0) BP elevated today without symptoms of urgency or emergency. Continue serial checks and follow-up with PCP 08/07/2024 Elevated blood-pressure reading, without diagnosis of hypertension (ICD-10 - R03.0) BP elevated today without symptoms of urgency or emergency. Continue serial checks and follow-up with PCP 03/20/2024 Other 08/07/2024 Other Plan Of Treatment Next Appt Details Provider Name:Mika Harry Jorge painter, 07/30/2025 04:15:00 PM, [facility] [address], [place], [address], Insurance Providers Payer Name Payer Address Payer Phone Subscriber Number Group Number Insured Name Patient Relationship to Insured Coverage Start Date Coverage End Date [facility] [address] [address] [place] [address] [phone] [id number] Nereyda Benson Self - patient is the insured Medical (General) History Medical History History ICD Code Chronic rhinitis J31.0 Idiopathic urticaria L50.1 Localized swelling, mass and lump, head R22.0 Allergic rhinitis due to pollen J30.1 Other allergic rhinitis J30.89 Other chronic allergic conjunctivitis H1 0.45 Elevated blood-pressure reading, without diagnosis of hypertension R03.0 Surgical History Surgery Date(Month/Year) Broken Wrist 12/21/2007 Csection 10/10/2018 Csection 03/24/2021
--- OUTSIDE RECORDS SUMMARY | 2024-12-24 11:11 | XMS_ITS ---
Author Organization [facility] Address [address] [place] [address] Care Team Providers Care Staff Engineer Name Role Phone Ana Van Primary Care Provider Caremn gilbertoje LorenzoMika Unavailable [phone] Allergies No Known Allergies REASON FOR VISIT Onset hives in mid-November without clear cause. Treated with oral steroids, Zyrtec, and Pepcid with complete resolution since November 30 s/p ED visit. Also with one noted episode of lip swelling. Additional onset 2 years later in relation to presumed viral illness with bruising occurring after, ARC follow-up: Continues allergy avoidance, on meds Medications Medication SIG (Take, Route, Fr equency, Duration) Notes Start Date End Date Status ZyrTEC Allergy 10 MG 1 tab(s) orally once a day Active Fluticasone Propionate 50 MCG/ACT 2 spray(s) in each nostril BID for 30 day(s) Active Lexapro 10 MG 1 tab(s) orally once a day for 30 day(s) Active AUVI -Q 0.3 mg as directed intramus cularly once for 30 day(s) Active Fluticasone Propionate 50 MCG/ACT 2 spray(s) in each nostril BID for 30 day(s) 03/29/2022 Active Auvi-Q 0.3 MG/0.3ML as directed intramus cularly once for 30 day(s) Active Amoxicillin-Pot Clavulanate 250-125 MG 1 tablet Orally every 8 hrs Active FLUTICASONE NASAL 50 mcg/inh 2 spray(s) in each nostril BID for 30 day(s) Active Cetirizine HCl 10 MG 1 tab(s) orally onc e a day for 30 days 03/29/2022 Active NASAL WASHES N/A as directed intranas ally as needed for 30 Active CETIRIZINE 10 mg 1 tab(s) orally once a day for 30 days Active Social History Tobacco Use: Social History Observation Description Date Details (start date - stop date) Never Smoker NA - NA Smoking Smart Form: Question Answer Notes Are you a: never smoker Tobacco Control (Standard) Question Answer Notes Tobacco use: Nonsmoker Vital Signs Blood pressure systolic 127 mm Hg 03/20/20 24 Blood pressure diastolic 81 mm Hg 024 Height 65 in 03/20/2024 Weight 185.8 lbs 03/20/2024 BMI 30.92 kg/m2 03/20/2024 Oximetry 98 % 03/20/2024 Encounters Encounter Location Date Provider Diagnosis [facility] [place] [facility] [address] [facility] [address] [place] [address] 03/20/2024 Mika Lorenzo Idiopathic urticaria L50.1 ; Localized swelling, mass and lump, head R22.0 ; Allergic rhinitis due to pollen J30.1 ; Other allergic rhinitis J30.89 ; Other chronic allergic conjunctivitis H10.45 and Elevated blood-pressure reading, without diagnosis of hypertension R03.0 Assessments Encounter Date Diagnosis (ICD Code) Assessment Notes Treatment Notes Treatment Clinical Notes Section Notes 03/20/2024 Idiopathic urticaria (ICD-10 - L50.1) History, [...] Zyrtec and BID Pepcid. She currently has python web developer on board. I advised obtaining bx if hives return to rule out vasculitics. Return in 3 months for E&M 03/20/2024 Localized swelling, mass and lump, head (ICD-10 - R22.0) Localized lip swelling occuring during episode of hives. Keep on hand at all times 03/20/2024 Allergic rhinitis due to pollen (ICD-10 [...] as an adjunctive treatment to current regimen 03/20/2024 Other chronic allergic conjunctivitis (ICD-10 - [...] checks and follow-up with PCP 03/20/2024 Other Plan Of Treatment Medication Medication Name Sig Start Date Stop Date Notes AUVI -Q 0.3 mg as directed intramus cularly once for 30 day(s) FLUTICASONE NASAL 50 mcg/inh 2 spray(s) in each nostril BID for 30 day(s) NASAL WASHES N/A as directed intranas ally as needed for 30 CETIRIZINE 10 mg 1 tab(s) orally once a day for 30 days Treatment Notes Assessment Notes Idiopathic urticaria History, [...] Zyrtec and BID Pepcid. She currently has python web developer on board. I advised obtaining bx if hives return to rule out vasculitics. Return in 3 months for E&M Localized swelling, mass and lump, head Localized lip swelling occuring during episode of hives. Keep on hand at all times Allergic rhinitis due to pollen Maris clearly [...] Provider Name:Mika painter, 07/30/2025 04:15:00 PM, [address] [facility], [address] [facility], [place], [address], Procedure Notes * Category Sub-Category Detail Notes Time (Provider Encounter) Time Attestation This follow-up encounter took more than:: more than 30 minutes (43599) Tasks performed during this encounter include:: taking a history, reviewing the patient's review of systems, performing the physical examnation, reviewing laboratory results, reviewing outside medical records, counseling the patient on their diagnoses and chronic management, counseling on chronic precription medication management, discussed risks, benefits and alternatives to care, discussed risks, benefits and alternatives to medications, documenting in the EHR, This time calculation excludes any time associated with the separately identifiable medical procedures performed/described within this note (e.g. spirometry/flow volume loop, injections, skin testing, etc...) Progress Notes * Nereyda CRAWFORDDOB:1990 (33 yo F)Acc No.[id number]:03/20/2024 Progress Notes Patient: Nereyda TABARES Provider: Raymundo Lorenzo PA-C :1990 A ge:33 Y S ex:Female Date:03/20/2024 Address:[facility] [id number] Pcp:Ana Gomez, FLY- Subjective: * Chief Complaints: * O nset hives in mid-November without clear cause. Treated with oral steroids, Zyrtec, and Pepcid with complete resolution since November 30 s/p ED visit. Also with one noted episode of lip swelling. Additional onset 2 years later in relation to presumed viral illness with bruising occurring afterARC follow-up: Continues allergy avoidance, on meds * HPI: * Introduction: I had the pleasure of seeing Annabella Crawford, a 33 y/o female with history of ARC and [...] No interval occurrence. She does have a python web developer on board. Aeroallergen skin testing was completed at first visit, and was positive to multiple seasonal and perennial allergens. She reports ongoing runny nose, sinus congestion, and sneezing jags. She has taken Zyrtec in the past with benefit. She has a 6 y/o dog at home without noted difference. No one in her family is noted to have seasonal allergies. Today, she reports no fevers, chills, [...] o. d ry or sensitive skin?Yes. h tremaine (urticaria) Y es. a cne Y es. [...] unremarkable. * Medical History: * Surgical History: Lexis noel Wrist 12/21/2007Csection 10/10/2018Csection 03/24/2021 * Hospitalization/Major Diagno [...] of drinks per occasion: 2 Frequency? W eejero S moking Smart Form Are you a: [...] of carpet? 2 0 Do you have ysdc-vs-zkhg carpeting? N o What is the age [...] Tobacco use: N onsmoker * Medications: T akingAmoxicillin-Pot Clavulanate 250-125 MG Tablet 1 tablet Orally every 8 hrs Auvi-Q 0.3 MG/0.3ML Solution Auto-injector as directed intramuscularly once Cetirizine HCl 10 MG Tablet 1 tab(s) orally once a day Fluticasone Propionate 50 MCG/ACT Suspension 2 spray(s) in each nostril BID NASAL WASHES N/A 1 QUART OF STERILIZED TAP WATER OR DISTILLED WATER, 1 TSP NACL, 1 PINCH OF BAKING SODA DIRECTED INTRANASALLY NEEDED , Notes to Pharmacist: *Please review for potential replacement for e-prescription and drug interaction check*Fluticasone Propionate 50 MCG/ACT Suspension 2 spray(s) in each nostril BID ZyrTEC Allergy 10 MG Tablet 1 tab(s) orally once a day Lexapro 10 MG Tablet 1 tab(s) orally once a day Medication List reviewed and reconciled with the patientTaking Amoxicillin-Pot Clavulanate 250-125 MG Tablet 1 tablet Orally every 8 hrs Taking Auvi-Q 0.3 MG/0.3ML Solution Auto-injector as directed intramuscularly once Taking Cetirizine HCl 10 MG Tablet 1 tab(s) orally once a day Taking Fluticasone Propionate 50 MCG/ACT Suspension 2 spray(s) in each nostril BID Taking NASAL WASHES N/A 1 QUART OF STERILIZED TAP WATER OR DISTILLED WATER, 1 TSP NACL, 1 PINCH OF BAKING SODA DIRECTED INTRANASALLY NEEDED , Notes to Pharmacist: *Please review for potential replacement for e-prescription and drug interaction check*Taking Fluticasone Propionate 50 MCG/ACT Suspension 2 spray(s) in each nostril BID Taking ZyrTEC Allergy 10 MG Tablet 1 tab(s) orally once a day Taking Lexapro 10 MG Tablet 1 tab(s) orally once a day Medication List reviewed and reconciled with the patient * Allergies: N .K.D.A.no[Allergies Verified] Objective: * Vitals: B P:127/81mm Hg, HR:64/min, Pulse Oximetry:98%, Ht: 65 in, Wt: 185.8 lbs, BMI:30.92Index. * Examination: G eneral examination: General appearance: [...] and lump, head - R22.0 3 . A llergic rhinitis due to pollen - J30.1 ?4. O ther allergic rhinitis - J30.89 5 . O ther chronic allergic conjunctivitis - H10.45 6 . E levated blood-pressure reading, without diagnosis of hypertension - R03.0 Plan: * Treatment: 2. L ocalized swelling, mass and lump, head Continue AUVI -Q kit, 0.3 mg, as directed, intramuscularly, once, 30 day(s), 1, Refills 0. ? Notes: Localized lip swelling occuring during episode of hives. Keep on hand at all times ? 3. A llergic rhinitis due to pollen Continue [...] current regimen. Otherwise continue regimen as above. 4. O ther allergic rhinitis Notes: Follow allergen avoidance, meds and consider SCIT as an adjunctive treatment to current regimen 5. O ther chronic allergic conjunctivitis Notes: Given ocular signs and symptoms I encouraged allergy avoidance measures and meds as above. If symptoms persist, consider adding additional medications including intraocular antihistamine/mast cell stabilizer, PRN and consider SCIT as an adjunctive measure 6. E levated blood-pressure reading, without diagnosis of hypertension Notes: BP elevated today without symptoms of urgency or emergency. Continue serial checks and follow-up with PCP * Procedures: T sukhdev (Provider Encounter): Time Attestation T his follow-up encounter took more than: m ore than 30 minutes ([id number]) T asks performed during this encounter include: t aking a history, reviewing the patient's review of systems, performing the physical examnation, reviewing laboratory results, reviewing outside medical records, counseling the patient on their diagnoses and chronic management, counseling on chronic precription medication management, discussed risks, benefits and alternatives to care, discussed risks, benefits and alternatives to medications, documenting in the EHR, This time calculation excludes any time associated with the separately identifiable medical procedures performed/described within this note (e.g. spirometry/flow volume loop, injections, skin testing, etc...) * Procedure Codes: G 8427 DOC MEDS VERIFIED W/PT OR [id number] Cristhian Lorenzo - Incident-to * Preventive Medicine: Counseling: M edication instruction: W atch for side effects of prescribed medications, Nasal steroid/antihistamine instruction: avoid septum, Injectable epinephrine education and instruction w/ discussion of signs and symptoms of anaphylaxis and reasons to seek urgent or emergent care, Able to return demonstration of self-injectable epinephrine. E ducation: Harinder LAI EDUCATION:, Avoid opioid-containing analgesics, Avoid excessive alcohol [...] TO ALTERNATIVE / PRIMARY CARE PROVIDER: R julioerral to general practitioner * Follow Up: 4 Weeks (Reason: Evaluation and Management) * Billing Information: * Visit Code: 65151 Office Visit, Est Pt., Level 4. Modifiers: 25 * Procedure Codes: G8427 DOC MEDS VERIFIED W/[place]. [address] Cristhian Lorenzo - Incident-to. Images * [id number] * Sign off status: Completed true * Provider: Raymundo Lorenzo PA-C Date: 0 03/20/2024 Generated for Ace la/Priyanka/Sully on: 0 12/24/2024 11:11 AM CDT History and Physical Notes * HPI (History of Present Illness) Category Sub-Category Detail Notes Category Not es *Introduction I had the pleasure o f seeing Nereyda Crawford, a 33 y/o female with history of ARC and [...] No interval occurrence. She does have a python web developer on board. Aeroallergen skin testing was completed at first visit, and was positive to multiple seasonal and perennial allergens. She reports ongoing runny nose, sinus congestion, and sneezing jags. She has taken Zyrtec in the past with benefit. She has a 6 y/o dog at home without noted difference. No one in her family is noted to have seasonal allergies. Today, she reports no fevers, chills, [...]
--- OUTSIDE RECORDS SUMMARY | 2024-12-24 11:11 | XMS_ITS | Clinical Summary ---
Author Organization [facility] [employer] Address [address] [place] [address] Care Team Providers Care Railroad Dining Car Steward/Stewardess Name Role Phone Shi Mosher MD Primary Care Provider Carmen vailable Source Comments [facility] [employer],non-owned Affiliates and Associated Physician Practices is amultiple site organization consisting of ambulatory clinics and hospital sitesin [place], [place] and [place]. This disclosure is being madepursuant to the Care Everywhere program and may not contain all information available regarding this patient. Last updated 18.[facility] [employer] Allergies No known active allergies Medications * Be aware that medications may not be up to date on this document. Alwaysverify current medications with the patient. No known medications Active Problems Comments Yes No known active problems Immunizations Immunization Administration Dates Next Due TDAP (7yrs+) 08/19/2018 Social History Tobacco Use Types Packs/Day Years Used Date Smoking Tobacco: Never Smokeless Tobacco: Never Comments Yes Sex and Gender Information Value Date Recorded Sex Assigned at Not on file Legal Sex Female 1:03 PM CDT Gender Identity Not on file Sexual Orientation Not on file Last Filed Vital Signs Vital Sign Reading Time Taken Comments Blood Pressure 118/72 07/23/2020 2:51 PM CLIENT DELIVERY MANAGER Pulse 103 07/23/2020 2:51 PM CLIENT DELIVERY MANAGER Temperature 37.1 C (98.7 F) 07/23/2020 2:51 PM CLIENT DELIVERY MANAGER Respiratory Rate 16 07/23/2020 2:51 PM CLIENT DELIVERY MANAGER Oxygen Saturation 99% 07/23/2020 2:51 PM CLIENT DELIVERY MANAGER Inhaled Oxygen Concentration - - Weight 81.6 kg (180 lb) 07/23/2020 2:51 PM CLIENT DELIVERY MANAGER Height 162.6 cm (5' 4 ) 07/23/2020 2:51 PM CLIENT DELIVERY MANAGER Body Mass Index 30.9 07/23/2020 2:51 PM CLIENT DELIVERY MANAGER Plan of Treatment Health Maintenance Due Date Last Done Comments PAP SMEAR 1990 HIV SCREENING 2005 HEPATITIS C SCREENING 06/24/2008 HEPATITIS B VACCINE (1 of 3 - 19+ 3-dose series) 2009 COVID-19 VACCINE ( - 2023-2 5 season) 2024 DEPRESSION SCREENING 09/13/2024 INFLUENZA VACCINE (Season Ended) 2025 06/28/2019, 06/30/2018 DTAP/TDAP/TD VACCINES (2 - T d or Tdap) 08/19/2028 08/19/2018 ZOSTER VACCINE (1 of 2) 2040 Respiratory Syncytial Virus (RSV) Vaccine Pt: or over 60 yrs (1 - 1-dose 75+ series) 2065 HIB VACCINE Aged Out No longer eligi ble based on patient's age to complete this topic HPV VACCINE Aged Out No longer eligi ble based on patient's age to complete this topic MENINGOCOCCAL (Group B) VACCINE SHARED DECISION-MAKING Aged Out No longer eligible based on patient's age to complete this topic MENINGOCOCCAL GROUPS A/C/Y/W VACCINE Aged Out No longer eligible b ased on patient's age to complete this topic PNEUMOCOCCAL VACCINE Aged Out No long er eligible based on patient's age to complete this topic Insurance [facility] Care Teams Railroad Dining Car Steward/Stewardess Relationship Specialty Start Date End Date Shi Mosher MD PCP - General Pediatrics 11/26/16
--- OUTSIDE RECORDS SUMMARY | 2024-12-24 11:11 | XMS_ITS ---
Author Organization [facility] Address [address] [place] [address] Care Team Providers Care Explosive Operator Fuse Name Role Phone Jason WANG, Ana Primary Care Provider Carmen Mika Mahajan Unavailable [phone] REASON FOR VISIT Hives follow-up Encounters Encounter Location Date Provider Diagnosis [facility] [address] [facility] [address] [place] [address] 06/20/2024 Mika Lorenzo Plan Of Treatment Next Appt Details Provider Name:Mika Harry Jorge painter, 07/30/2025 04:15:00 PM, [address] [employer] [address], [place], [address], Progress Notes * Nereyda CRAWFORDDOB:1990 (34 yo F)Acc No.[id number]:06/20/2024 Progress Notes Patient: Lexis CHERRIEOttoniel WinchesterNereyda Provider: Raymundo Lorenzo PA-C :1990 A ge:33 Y S ex:Female Date:06/20/2024 [id number] Pcp:KATHLEEN Erazo Subjective: * Chief Complaints: * 1 . Hives follow-up. * Medical History: Objective: * Vitals: Assessment: Plan: * Treatment: * Billing Information: * Visit Code: * Procedure Codes: * Electronic signature of Cristhian Lorenzo PA-C on 12/24/2024 at 11:11 AM CDT Sign off status: Pending * Provider: Raymundo Lorenzo PA-C Date: 1 Generated for Ace la/Priyanka/Sully on: 0 12/24/2024 11:11 AM CDT
--- OUTSIDE RECORDS SUMMARY | 2024-12-24 11:11 | XMS_ITS | Clinical Summary ---
Author Organization [facility] Address [address] [place] [address] Phone Care Team Providers Care Manager Implementation Name Role Phone Anton Mosher MD Primary Care Provider [phone] Allergies No known active allergies Medications escitalopram oxalate (LEXAPRO) 10 mg tablet Take 10 mg by mouth daily. Active albuterol sulfate 90 mcg/Actuation inhaler Take 1 Puff by inhalation every 4 hours as needed for Other (See Comment) (cough). 8.5 Gram Active Social History Tobacco Use Types Packs/Day Years Used Date Smoking Tobacco: Never Assessed Comments Unknown Sex and Gender Information Value Date Recorded Sex Assigned at Not on file Legal Sex Female 8:44 AM CDT Gender Identity Not on file Sexual Orientation Not on file Last Filed Vital Signs Vital Sign Reading Time Taken Comments Blood Pressure 130/78 11/30/2021 11:38 AM CDT Pulse 75 11/30/2021 11:38 AM CDT Temperature 36.7 C (98 F) 11/30/2021 11:38 AM CDT Respiratory Rate 18 11/30/2021 11:38 AM CDT Oxygen Saturation 99% 11/30/2021 11:38 AM CDT Inhaled Oxygen Concentration - - Weight 78.7 kg (173 lb 8 oz) 11/30/2021 8:46 AM CDT Height 162.6 cm (5' 4 ) 11/30/2021 8:46 AM CDT Body Mass Index 29.78 11/30/2021 8:46 AM CDT Plan of Treatment Health Maintenance Due Date Last Done Comments HEPATITIS B VACCINES (1 of 3 - 19+ 3-dose series) 2009 HPV/Cotest (21-29) 2011 CERVICAL CANCER SCREENING 2020 HPV/Cotest (30-65) 2020 PAP SMEAR 2020 INFLUENZA VACCINE (#1) 2024 DTAP/TDAP/TD VACCINES (2 - T d or Tdap) 08/19/2028 08/19/2018 HPV VACCINES Aged Out No longer eligi ble based on patient's age to complete this topic Insurance [facility] [id number] Member Subscriber Plan / Payer (Ef fective 2021-Present) Name:Nereyda Benson Relation to Subscriber:Self Name:Nereyda Benson Payer ID:[id number] (NAIC) Type:HMO Address: [facility] [id number] [place] [id number] Care Teams Manager Implementation Relationship Specialty Start Date End Date Anton Mosher MD [address] [place] [phone] PCP - General Internal Medicine 11/30/21
--- OUTSIDE RECORDS SUMMARY | 2024-12-24 11:11 | XMS_ITS | Data Portability ---
Author Organization [facility] Address [address] [place] [address] Assessment No assessment recorded. Plan of Treatment Reminders Order Date Submit Date Provider Last Modified By Organization Details Last Modified Time Details Appointments None recorded. Lab None recorded. Referral None recorded. Procedures None recorded. Surgeries None recorded. Imaging XR, chest, 2 view - NPI: [id number] ollaborativ e is Colton Castellon MD 2022 023 ashu Reid [facility] (Radiology), [address] [facility] , [place], [address], 4 11:09:10 Medication Orders prednisone 20 mg tablet [address] [place] [address] [facility] [id number], [address], [place], [place], [id number], 3 10:57:45 doxycycline hyclate 100 mg capsule 2022 023 [id number], [address], [place], [place], [id number], 3 10:46:30 Flonase Allergy Relief 50 mcg/actuati on nasal spray,suspe nsion 2022 023 [facility] [id number], [address], [place], [place], [id number], 3 10:46:30 Patient TargetsNo targets recorded. Patient Instructions Encounter Date Encounter Id Patient Instructions Last Modified By Organization Details Last Modified Time 07/29/2023 [id number] Acute Sinusitis: Care Instructions Not available 07/29/2023 10:58:55 Reason for Referral None Reported. Problems No Known Problems Medical Equipment None Reported. Allergies No known drug allergies Medications Name Sig Start Date Stop Date Status Note LastModified by Organization Details LastModified Time doxycycline hyclate 100 mg capsule TAKE 1 CAPSULE BY MOUTH TWICE DAILY WITH MEALS FOR 7 DAYS active Not Available Not Available No t Available prednisone 20 mg tablet TAKE 2 TABLETS BY MOUTH EVERY DAY WITH MEALS FOR 5 DAYS active Not Available Not Available No t Available fluticasone propionate 50 mcg/actuatio n nasal spray,suspen yaya SHAKE LIQUID AND USE 1 SPRAY IN EACH NOSTRIL EVERY DAY DIRECTED active Not Available Not Available Not Available Zyrtec active Not Available Not Availa ble Not Available albuterol 90 mcg-budesoni de 80 mcg/actuatio n HFA aerosol inhaler Inhale by inhalation route. active Not Available Not Available No t Available Vitals Date Recorded Body height Body mass index (BMI) Body weight Oxygen saturation Oxygen saturation in Arterial blood by Pulse oximetry Heart rate Respiratory rate Body temperature Systolic blood pressure Diastolic blood pressure Provider Name and Address Organization Details Last Updated DateTime 3 162.56 cm 31.6 kg/m2 61154 g 98 % 98 % 93 /min 18 /min 98.5 [degF] 106 mm[Hg] 70 mm[Hg] INES Becerra NP Attn: Accountin [facility],[address] [place], [address], [place] - [place] 3 10:41:12 Social History Question Answer Notes LastModified by [employer] ion Details LastModified Time Tobacco Smoking Status Former Smoker INES Becerra NP Attn: [facility]ing,[address] [place], [address], [facility] - [facility] 07/29/2023 10:43:08 What Is Your Level Of Alcohol Consumption? Occasional Information not available 07/29/2023 What Was The Date Of Your Most Recent Tobacco Screening? 07/29/2023 Information not available 07/29/2023 What Is Your Current Pack Years? 10packyears Information not available 07/29/2023 Do You Use Any Illicit Or Recreational Drugs? No Information not available 07/29/2023 Has Tobacco Cessation Counseling Been Provided? No Information not available 07/29/2023 Do You Or Have You Ever Used Any Other Forms Of Tobacco Or Nicotine? No Information not available 07/29/2023 Sex: Unknown Functional Status None recorded. Mental Status None recorded. Family History Relationship Description Onset Age of this Age Resolved Age Notes LastModified by Organization Details LastModified Time Father No current problems or disability Not available 07/29 10:42:40 Mother No current problems or disability Not available 07/29 10:42:40 Medical History Condition Response Coronary Artery Disease N Other N High Blood Pressure N Atrial Fibrillation N Thyroid Problems N Kidney or Bladder Problems N GI Problems N Depression N COPD N Blood Clots N Skin Problems N Eating Disorder N Anemia N Heart Attack (NM) N Anxiety Disorder N Diabetes N Muscle, Joint, or Bone Problems N Seizures/Epilepsy N Acid Reflux (GERD) N Cancer N Stroke N Asthma Y Allergies N ADHD N Substance Abuse N High Cholesterol N Hepatitis N Liver Disease N Schizophrenia N Headaches N Heart Failure N Osteoporosis N Gynecological History Statement/Question Response Menses Monthly Y Current Control Method None Date of LMP 07/13/2023 Obstetrics History GPAL:G 0 P 0 0 0 0 Past Encounters Encounter ID Performer Location Encounter Start Date Encounter Closed Date Diagnosis/Indication Diagnosis SNOMED-CT Code Diagnosis ICD10 Code Diagnosis Note [id number] INES Becerra NP [facility] [address] [place] [phone] 07/29/2023 10:28:31 07/29/2023 10:42:41 Acute sinusitis 67521713 J01.90 -Can take honey to help with cough-Incr ease fluid intake-Can use tylenol or ibuprofen for fever or pain-To take ABX as directed. Take with probiotics .-To alert clinic if any new or worsening symptoms. Wheezing 78128829 R06.2 -To use as directed.- To continue albuterol every 4-6 hours as needed for wheezing or cough-ER precaution s discussed. Health Concerns Section Related Observation LastModified by Organization Detai ls LastModified Time None Recorded Concern Status LastModified by Organization Details LastModified Time None Recorded Advance Directives Directive None Recorded Payers Encounter Date Sequence Insurance Name Policy Number Policy Flores Covered Member ID Flores Member ID Guarantor Name 07/29/2023 1 [facility] [id number] Nereyda Benson [id number] Maris Benson Notes Date Note Type Note Provider Name and Address Organization Details Recorded Time 07/29/2023 text/html Sinusitis/Allerg y Reported bypatient.Locatio n:maxillary Associated Symptoms:nasal discharge from both nostrils;facial pain bilaterally;sinus pain diffuse;sore throat;nasal discharge Quality:no pain; no itching; no throbbing Severity:no pain Context:recent sick contacts Risk Factors:no current smoking or tobacco use Aggravating factors:not worse with change in medication Pt into school based clinic with c/o cough, congestion, sinus pain and pressure x 5 weeks. Pt was seen in 3 weeks ago and diagnosed with a URI. She took 5 days of prednisone with slight improvement. Reports sinus pain and pressure for the last 2 weeks. Low grade fever of 99-100. Productive cough of yellow/green phlegm. Slight pain with coughing. No N/V/D. No rash. LMP: 07/13/23. Denies any chance of . INES Becerra NP Attn: [facility],[address] [place], [address], [facility] - [facility] 07/29/2023 10:59:26 OBGyn Episode No OBEpisode recorded.
--- OUTSIDE RECORDS SUMMARY | 2024-12-24 11:11 | XMS_ITS | Clinical Summary ---
Author Organization [facility] Address [address] [place] [address] Care Team Providers Care Cigarette Filter Inspector Name Role Phone Anton Mosher MD Primary Care Provider [phone] Allergies No known active allergies Medications escitalopram 10 MG tablet Take 10 mg by mouth daily. 11/13/2021 Active predniSONE 10 mg tabletIndicatio ns:Allergic reaction, subsequent encounter,Hives of unknown origin Take 4 tablets daily x 4 days, then 3 tablets daily x 4 days, then 2 tablets daily x 3 days, then 1 tablet daily x 3 days. 37 tablet 11/27/2021 Active albuterol sulfate HFA 108 (90 Base) MCG/ACT inhaler Inhale 1 puff into the lungs every 4 (four) hours as needed. 11/30/2021 Active Active Problems Problem Noted Date Diagnosed Date Excessive daytime sleepiness 08/20/2016 Depression 07/23/2016 Allergic rhinitis 09/23/2015 Immunizations Immunization Administration Dates Next Due Influenza Adult (Generic) 06/28/2019,06/30/2018 MMR (MMRII) 03/26/2021 Tdap (Boostrix) 08/19/2018 Tdap (Generic) 08/19/2018 Family History Medical History Relation Comments Heart Disease Maternal Aunt Diabetes Maternal Grandfather Heart Disease Maternal Grandfather Diabetes Maternal Grandmother Heart Disease Maternal Grandmother Relation Status Comments Maternal Aunt Maternal Grandfather Maternal Grandmother Social History Tobacco Use Types Packs/Day Years Used Date Smoking Tobacco: Never Smokeless Tobacco: Never Alcohol Use Standard Drinks/Week Comments Yes 0 (1 standard drink = 0.6 oz pur e alcohol) ocassionaly AUDIT-C Answer Date Recorded Frequency of Alcohol Consumption Monthly or less 12/06/2018 Average Number of Drinks Not on file 019 Frequency of Binge Drinking Not on file 11/12 PHQ-2 Answer Date Recorded PHQ-2 Score 0 12/12/2018 Comments No Sex and Gender Information Value Date Recorded Sex Assigned at Not on file Legal Sex Female 9:05 PM CDT Gender Identity Female 12/01/2021 6:19 AM CDT Sexual Orientation Not on file Last Filed Vital Signs Vital Sign Reading Time Taken Comments Blood Pressure 132/77 12/01/2021 9:21 AM CDT Pulse 52 12/01/2021 9:21 AM CDT Temperature 36.8 C (98.2 F) 12/01/2021 9:21 AM CDT Respiratory Rate 14 12/01/2021 9:21 AM CDT Oxygen Saturation 100% 12/01/2021 9:21 AM CDT Inhaled Oxygen Concentration - - Weight 78.7 kg (173 lb 8 oz) 12/01/2021 9:21 AM CDT Height 162.6 cm (5' 4 ) 12/01/2021 9:21 AM CDT Body Mass Index 29.78 12/01/2021 9:21 AM CDT Plan of Treatment Health Maintenance Due Date Last Done Comments Cervical Cancer Screening Pa p Smear (Age 30 to 64) Every 3 Years 1990 Annual Physical 1993 Hepatitis C 2008 Hepatitis B Vaccines (1 of 3 - 19+ 3-dose series) 2009 Cervical Cancer Screening Pa p with HPV Testing (Age 30 to 64) Every 5 Years 2020 Cervical Cancer Screening [facility] HPV 2020 COVID-19 Vaccine (2023-2 5 season) 2024 DTaP, Tdap and Td Vaccines ( 3 - Td or Tdap) 08/19/2028 08/19/2018, 08/19/2018 HPV Vaccines Aged Out No longer eligi ble based on patient's age to complete this topic Meningococcal B Vaccine Aged Out No l onger eligible based on patient's age to complete this topic Meningococcal Vaccine Aged Out No casandra yessica eligible based on patient's age to complete this topic Pneumococcal Vaccine: Pediatrics (0 to 5 Years) and At-Risk Patients (6 to 49 Years) Aged Out No longer eligible b ased on patient's age to complete this topic RSV Immunizations Under 20 Months Aged Out No longer eligible b ased on patient's age to complete this topic Insurance [facility] Care Teams Cigarette Filter Inspector Relationship Specialty Start Date End Date Anton Mosher MD [address] [place] [id number] PCP - General INTERNAL MEDICINE 12/06/18
--- OUTSIDE RECORDS SUMMARY | 2024-12-24 11:11 | XMS_ITS | Referral Summary ---
Author Organization [address] Address [address] [place] [address] Care Team Providers Care Idea Worker Name Role Phone Unknown, Notinfile Primary Care Provider Unavail able Encounters Date Type Department Care Team Description 10/01/2024 5:45 PM CONTROLLED ATMOSPHERIC FURNACE BRAZER Office Visit [facility] [place] [address] [place] [address] Martha Garibay, NANCY Viral URI with cough (Primary Dx) from Last 3 Months Allergies No known active allergies Medications norgestimate-et hinyl estradiol (TRI-LINYAH) 0.18/0.215/0.25 mg-35 mcg (28) per tablet take 1 tablet by oral route every day 0 0 6 Active Additional Information Patient not taking.Reported on 10/01/2024 fexofenadine (SOLITARIO ALLERGY) 180 mg tablet take 1 tablet by oral route every day 0 0 6 Active escitalopram (LEXAPRO) 10 mg tablet Take 1 tablet (10 mg total) by mouth daily Active fluconazole (DIFLUCAN) 150 mg tabletIndicatio ns:Antibiotic-i nduced yeast infection Take 1 tablet (150 mg total) by mouth as directed Take one tab now. Repeat in 7 days if symptoms persist. 2 tablet 2 Active Additional Information Patient not taking.Reported on 10/01/2024 norethindrone (MICRONOR) 0.35 mg tablet Active drospirenone-et hinyl estradioL (Peggy) 3-0.03 mg per tablet Active albuterol HFA (PROVENTIL HFA,VENTOLIN HFA,PROAIR HFA) 90 mcg/actuation inhaler Inhale 1 puff every 4 (four) hours as needed 2 Active albuterol HFA (PROVENTIL HFA,VENTOLIN HFA,PROAIR HFA) 90 mcg/actuation inhalerIndicati ons:Bronchitis Inhale 2 puffs every 6 (six) hours as needed for wheezing 1 each 3 Active Additional Information Patient not taking.Reported on 10/01/2024 lisdexamfetamin e (VYVANSE) 30 mg capsule Take 1 capsule (30 mg total) by mouth daily Active ipratropium (ATROVENT) 42 mcg (0.06 %) nasal spray every 6 hours 4 Active benzonatate (TESSALON) 200 mg capsuleIndicati ons:Viral URI with cough Take 1 capsule (200 mg total) by mouth 3 (three) times a day as needed for cough 42 capsule 5 Active Active Problems No known active problems Social History Tobacco Use Types Packs/Day Years Used Date Smoking Tobacco: Never Smokeless Tobacco: Never Comments No Sex and Gender Information Value Date Recorded Sex Assigned at Not on file Legal Sex Female 6:15 AM CDT Gender Identity Not on file Sexual Orientation Not on file Last Filed Vital Signs Vital Sign Reading Time Taken Comments Blood Pressure 118/74 10/01/2024 5:46 PM CONTROLLED ATMOSPHERIC FURNACE BRAZER Pulse 97 10/01/2024 5:46 PM CONTROLLED ATMOSPHERIC FURNACE BRAZER Temperature 36.7 C (98.1 F) 10/01/2024 5:46 PM CONTROLLED ATMOSPHERIC FURNACE BRAZER Respiratory Rate 18 10/01/2024 5:46 PM CONTROLLED ATMOSPHERIC FURNACE BRAZER Oxygen Saturation 98% 10/01/2024 5:46 PM CONTROLLED ATMOSPHERIC FURNACE BRAZER Inhaled Oxygen Concentration - - Weight 81.6 kg (180 lb) 10/01/2024 5:46 PM CONTROLLED ATMOSPHERIC FURNACE BRAZER Height 162.6 cm (5' 4 ) 10/01/2024 5:46 PM CONTROLLED ATMOSPHERIC FURNACE BRAZER Body Mass Index 30.9 10/01/2024 5:46 PM CONTROLLED ATMOSPHERIC FURNACE BRAZER Plan of Treatment Not on file Procedures Procedure Name Priority Date/Time Associated Diagnosis Comments POC INFLUENZA A/B, COVID-19 ANTIGEN Routine 10/01/2024 6:12 PM CONTROLLED ATMOSPHERIC FURNACE BRAZER Viral URI with cough from Last 3 Months Results * POC Influenza A/B, COVID-19 antigen (10/01/2024 6:12 PM CONTROLLED ATMOSPHERIC FURNACE BRAZER) Influenza A Ag, POC Negative Negative [facility] Influenza B Ag, POC Negative Negative [facility] COVID-19 Ag POC Presumptive Negative Presumptive Negative, Invalid [facility] Nasal 10/01/2024 6:12 PM CONTROLLED ATMOSPHERIC FURNACE BRAZER us Martha Garibay NP POINT OF CARE TEST ORDERABLES Fi nal Result [facility] [address] [place] [address], [facility] from Last 3 Months Insurance [facility] [employer] Care Teams Idea Worker Relationship Specialty Start Date End Date Unknown, Notinfile PCP - General 06/16/22
--- OUTSIDE RECORDS SUMMARY | 2024-12-24 11:11 | XMS_ITS | Clinical Summary ---
Author Organization [address] Address [address] [place] [facility] [place] [address] Care Team Providers Care Boiler Plant Worker Name Role Phone Unknown, Notinfile Primary Care Provider Unavail able Allergies No known active allergies Medications norgestimate-et [...] Active Active Problems No known active problems Encounters Date Type Department Care Team Description 10/01/2024 5:45 PM [facility] Office Visit [facility] at [address] [place] [address] Martha Garibay NP Viral URI with cough (Primary Dx) from Last 3 Months Surgical History Surgery Date Site/Laterality Comments SECTION 2018 and 2020 Family History Medical History Relation Name Comments Throat cancer Maternal Grandfather Cancer , throat; Heart attack Maternal Grandmother Myocard ial infarction; Cause of : Myocardial infarction Skin cancer Mother's Sister Cancer, skin ; Relation Name Status Comments Maternal Grandfather Maternal Grandmother Mother's Sister Social History Tobacco Use Types Packs/Day Years Used Date Smoking Tobacco: Never Smokeless Tobacco: Never Comments No Sex and Gender Information Value Date Recorded Sex Assigned at Not on file Legal Sex Female 6:15 AM CDT Gender Identity Not on file Sexual Orientation Not on file Obstetrics History Last Filed Vital Signs Vital Sign Reading Time Taken Comments Blood Pressure 118/74 10/01/2024 5:46 PM [facility] Pulse 97 10/01/2024 5:46 PM [facility] Temperature 36.7 C (98.1 F) 10/01/2024 5:46 PM [facility] Respiratory Rate 18 10/01/2024 5:46 PM [facility] Oxygen Saturation 98% 10/01/2024 5:46 PM [facility] Inhaled Oxygen Concentration - - Weight 81.6 kg (180 lb) 10/01/2024 5:46 PM [facility] Height 162.6 cm (5' 4 ) 10/01/2024 5:46 PM [facility] Body Mass Index 30.9 10/01/2024 5:46 PM [facility] Plan of Treatment Health Maintenance Due Date Last Done Comments Cervical Cancer Screening 1990 Depression Screening 1990 Hepatitis C Screening 1990 Varicella Vaccines (1 of 2 - 13+ 2-dose series) 2003 Hepatitis B Screening 2008 Regular Well Visit/Exam 18-64 2008 Influenza Vaccine (#1) 2024 0, 06/28/2019, 06/30/2018 DTaP/Tdap/Td Vaccine (2 - Td or Tdap) 08/19/2028 08/19/2018 HPV Vaccines Aged Out No longer eligi ble based on patient's age to complete this topic Pneumococcal vaccine <65 Aged Out No longer eligible based on patient's age to complete this topic Procedures Procedure Name Priority Date/Time Associated Diagnosis Comments POC INFLUENZA A/B, COVID-19 ANTIGEN Routine 10/01/2024 6:12 PM [facility] Viral URI with cough from Last 3 Months Results * POC Influenza A/B, COVID-19 antigen (10/01/2024 6:12 PM [facility]) Influenza A Ag, POC Negative Negative [facility] Influenza B Ag, POC Negative Negative [facility] COVID-19 Ag POC Presumptive Negative Presumptive Negative, Invalid [facility] Nasal 10/01/2024 6:12 PM [facility] Martha Garibay NP POINT OF CARE TEST ORDERABLES Fi nal Result [facility] [address] [place] [address], [facility] from Last 3 Months Insurance [facility] PLUS [facility] PLUS [place] [id number] Care Teams Boiler Plant Worker Relationship Specialty Start Date End Date Unknown, Notinfile PCP - General 06/16/22
--- OUTSIDE RECORDS SUMMARY | 2024-12-24 11:11 | XMS_ITS | Encounter Summary ---
Author Organization [facility] Address [address] [place] [id number] Care Team Providers Care Chemical Etch Operator Name Role Phone Anton Mosher MD Primary Care Provider [phone] Encounter Details Date Type Department Care Team (Late st Contact Info) Description 11/28/2021 MyChart Message Enc [facility] Internal [facility] [place] [id number] [place] [address] Anton Mosher MD [facility] [place], [place] [id number] Rash Social History Tobacco Use Types Packs/Day Years [...] AM CDT Sexual Orientation Not on file COVID-19 Exposure Response Date Recorded In the last 10 days, have yo u been in contact with someone who was confirmed or suspected to have Coronavirus/COVID-19? No / Unsure 12/01/2021 9:00 AM CDT documented as of this encounter Plan of Treatment Not on file documented as of this encounter Visit Diagnoses Not on filedocumented in this encounter Care Teams Chemical Etch Operator Relationship Specialty Start Date End Date Anton Mosher MD [address] [place] [id number] PCP - General INTERNAL MEDICINE 12/06/18 documented as of this encounter
[2024-12-24 11:15] VITALS: BP 123/73; PULSE 98; RESP 16; TEMP 37.1; O2SAT 98
[2024-12-24 11:44] LABS: EDSTREPNEGPOS1 Positive (Negative)
--- NOTE | 2024-12-24 11:54 | ED_ITS ---
HPI - General Adult General Chief complaint: Upper Respiratory Infection Stated complaint: Sore Throat Source: patient Mode of arrival: ambulatory Limitations: no limitations History of Present Illness HPI narrative: Pt presents for evaluation of sore throat. Symptom onset two days ago, worse as of today. She also reports fatigue. She denies any fever, chills, body aches, cough, nausea, vomiting, diarrhea. 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 She tried taking ibuprofen for her symptoms. She does not smoke. Related Data Allergies Allergy/AdvReac Type Severity Reaction Status Date / Time No Known Allergies Allergy Verified 12/24/24 11:27 Review of Systems Review of Systems: CONSTITUTIONAL: Reports fatigue. Denies fever, chills, or sweats. EYES: Denies visual changes, redness, or discharge. ENT: Reports sore throat. Denies rhinorrhea, congestion, or otalgia. CARDIOVASCULAR: Denies chest pain, palpitations, or edema. RESPIRATORY: Denies cough or dyspnea. GASTROINTESTINAL: Denies abdominal pain, nausea, vomiting, or diarrhea. GENITOURINARY: Denies dysuria or hematuria. SKIN: Denies rash or itching. MUSCULOSKELETAL: Denies back pain, joint pain, or myalgia. NEUROLOGIC: Denies headache, numbness, dizziness, or weakness. PSYCHIATRIC: Denies anxiety or depression. [facility] Past Medical History Medical History (Reviewed 12/24/24 @ 11:56 by Wale Thayer, [facility]) HSV-2 (herpes simplex virus 2) infection ADHD Anxiety Allergy, unspecified, initial encounter Surgical History Surgical History (Reviewed 12/24/24 @ 11:56 by Wale Thayer [facility]) Delivery by section History of delivery Family History Family History (Reviewed 12/24/24 @ 11:56 by Wale Thayer [facility]) Sibling Throat cancer Grandparent Heart disease Mother Hypertension Other Diabetes mellitus Social History Social History (Reviewed 12/24/24 @ 11:56 by Wale Thayer [facility]) Smoking status: Former smoker Alcohol intake: current Drinks per week: 2 Alcohol use details: Beer / Wine Substance use: never Substance use type: does not use Do You Feel Safe in your Home?: Yes Lack of Transportation: No Lack of Food: Never True Current Housing: Decline to Answer Concerned About Future Housing: Decline to Answer Difficulty Paying Gas/Electric Bills: Decline to Answer Difficulty Paying for Meds: Decline to Answer Currently Unemployed: Decline to Answer Education: Decline to Answer Difficulty w/ Childcare or Family Care: Decline to Answer Living arrangements: with family Additional living arrangements comments: Occupation/Education: occupation Additional occupation/education comments: teacher Gender identity (if verbalized by the patient): Female Sexual Orientation (if Verbalized by the Patient): Straight or Heterosexual Spiritual care concerns: No Agree to blood products: Yes Exam Narrative: GENERAL: Well-appearing, well-nourished, and in no acute distress. HEAD: Normocephalic, atraumatic. EYES: PERRLA and EOMI. ENT: Nares clear, no rhinorrhea or epistaxis. Mucous membranes moist. Oropharynx without tonsillar hypertrophy exudate or other lesions. There is posterior pharyngeal erythema. Bilateral TMs pearly morrison nonbulging NECK: Supple. No adenopathy or masses. No carotid bruits or JVD CHEST: Clear to auscultation. No respiratory distress. No wheezes rales or rhonchi HEART: Regular rate and rhythm. No murmur heard. Normal peripheral pulses. ABDOMEN: Soft, nontender, nondistended, normal active bowel sounds. EXTREMITIES: Normal range of motion. No edema. SKIN: Warm, dry, no rash. NEURO: No focal deficits. Alert and oriented x3. PSYCH: Normal mood and affect. Course Course Emergency Course: This is a 34-year-old female who presented for evaluation of sore throat. Rapid strep positive. Will treat with amoxicillin. Increase hydration. [id number] agents for symptom management. Follow up with primary provider. Go to the ER for worsening symptoms. Patient in agreement with plan of care Level of Care: Express Care Visit Vital Signs Vital signs: Vital Signs Temperature 37.1 C 12/24/24 11:15 Pulse Rate 98 12/24/24 11:15 Respiratory Rate 16 12/24/24 11:15 Blood Pressure 123/73 12/24/24 11:15 Pulse Oximetry 98 12/24/24 11:15 Oxygen Delivery Room Air 12/24/24 11:15 Temperature 37.1 C 12/24/24 11:15 Pulse Rate 98 12/24/24 11:15 Respiratory Rate 16 12/24/24 11:15 Blood Pressure 123/73 12/24/24 11:15 Pulse Oximetry 98 12/24/24 11:15 Oxygen Delivery Room Air 12/24/24 11:15 Medical Decision Making Vital Signs Vital Signs: Vital Signs Temperature 37.1 C 12/24/24 11:15 Pulse Rate 98 12/24/24 11:15 Respiratory Rate 16 12/24/24 11:15 Blood Pressure 123/73 12/24/24 11:15 Pulse Oximetry 98 12/24/24 11:15 Oxygen Delivery Room Air 12/24/24 11:15 Temperature 37.1 C 12/24/24 11:15 Pulse Rate 98 12/24/24 11:15 Respiratory Rate 16 12/24/24 11:15 Blood Pressure 123/73 12/24/24 11:15 Pulse Oximetry 98 12/24/24 11:15 Oxygen Delivery Room Air 12/24/24 11:15 Lab Data Labs: Lab Results 12/24/24 Range/Units 11:43 POC Grp A Strep Screen Positive (Negative) Discharge Plan Discharge Clinical Impression: Strep pharyngitis Patient Disposition: Home Condition: Stable Instructions: Antibiotic Form, Strep Throat (ED) Patient Language: Brazilian Prescriptions: New amoxicillin 500 mg tablet 500 mg PO Q12H Qty: 20 0RF No Action cetirizine [Allergy Relief (cetirizine)] 10 mg tablet 10 mg PO DAILY Qty: 30 0RF escitalopram oxalate 10 mg tablet 10 mg PO DAILY Qty: 90 2RF lisdexamfetamine [Vyvanse] 30 mg capsule 30 mg PO DAILY Qty: 30 0RF Follow-up/Referrals: Ana Gomez APRN [Primary Care Provider] - Stand Alone Forms: Work/School Release IP Time of Disposition: 11:49
== END 2024-12-24 11:56 | disposition home or self-care (01) ==
PROVIDERS: Emergency Provider Nurse Practitioner; PCP Nurse Practitioner Adult Health
DX: J02.0 Streptococcal pharyngitis (principal); Z87.891 Personal history of nicotine dependence
CPT/HCPCS: 87880; 99213; G0463